=== PATIENT | male | born 1940 | race Caucasian/White ===

== ENCOUNTER → 2016-10-19 | Outpatient (CLI) | payer MEDICARE, OTHER | END | disposition home or self-care (01) | LOC: MW.LAB 12:46 | PROVIDERS: ATTEND Hospitalist | DX: R30.0 Dysuria (principal); I13.10 Hypertensive heart and chronic kidney disease without heart failure, with stage 1 through stage 4 chronic kidney disease, or unspecified chronic kidney disease; N19 Unspecified kidney failure; H10.10 Acute atopic conjunctivitis, unspecified eye | CPT/HCPCS: 36415; 80048; 81001; 85025; G0463 ==

== ENCOUNTER → 2016-11-29 | Outpatient (CLI) | payer MEDICARE, OTHER | LOC: MW.CHIM 08:00 | CPT/HCPCS: 99214 ==

== ENCOUNTER → 2016-12-28 | Outpatient (CLI) | payer MEDICARE, OTHER | LOC: MW.CHFP 10:12 | PROVIDERS: ATTEND Student in an Organized Health Care Education/Training Program | DX: D64.9 Anemia, unspecified (principal); J96.10 Chronic respiratory failure, unspecified whether with hypoxia or hypercapnia; R60.0 Localized edema | CPT/HCPCS: 36415; 85025; G0463 ==

== ENCOUNTER → 2017-01-18 | Outpatient (CLI) | payer MEDICARE, OTHER | LOC: MW.CHFP 13:50 | PROVIDERS: ATTEND Student in an Organized Health Care Education/Training Program | DX: D64.9 Anemia, unspecified (principal); L50.8 Other urticaria; Z99.81 Dependence on supplemental oxygen | CPT/HCPCS: 36415; 85027; G0463 ==

== ENCOUNTER → 2017-02-19 | Outpatient (CLI) | payer MEDICARE, OTHER ==
--- NOTE | 2017-02-19 15:43 | CR ---
EXAMINATION: Two-view chest (PA and Lateral views). HISTORY: Pleurodynia. FINDINGS: The trachea is midline. The heart is borderline in size. The cardiomediastinal silhouette is within normal limits. Mild interstitial prominence with a trace left pleural effusion. No pneumothorax. The re is a left-sided AICD. Median sternotomy wires are noted with evidence of coronary revascularizati on. Osseous structures appear unremarkable. IMPRESSION: 1. Trace left pleural effusion.
== END ==
LOC: MW.CHFP 13:35
PROVIDERS: ATTEND Student in an Organized Health Care Education/Training Program
DX: R07.81 Pleurodynia (principal); L29.9 Pruritus, unspecified
CPT/HCPCS: 71020; 71020-26; G0463

== ENCOUNTER 2017-03-20 08:58 | Observation (INO) | payer MEDICARE, OTHER, MEDICAID ==
[2017-03-20] MEDS ORDERED: Sodium Chloride 0.9% 10 ML Syringe FLUSH PRN (09:16)
[2017-03-20] MEDS ORDERED: Sodium Chloride 0.9% 2.5 ML Syringe FLUSH PRN (09:16)
--- NOTE | 2017-03-20 09:23 | EDM.PDOC ---
ED HPI GENERAL MEDICAL PROBLEM - General Chief Complaint: Lower Extremity Injury/Pain Stated Complaint: FELL, LEFT HIP PAIN Time Seen by Provider: 03/20/17 09:09 - History of Present Illness INITIAL COMMENTS - FREE TEXT/NARRATIVE: HISTORY AND PHYSICAL: History of present illness: The patient is a 76-year-old male with a history of hypertension congestive heart failure cardiomyopathy a pacemaker hypercholesterolemia respiratory distress of hypothyroidism who was following with Dr. Marquise Hernandez and our retail pharmacy manager Dr. Castro, but who now resides at [facility] and presents via EMS after tripping on his oxygen tubing and landing onto his left hip. The staff at the correction states he did not pass out or black out and yelled right away and complained of left hip pain when they attempted to stand him up. The patient did not complain of any other discomfort. As patient is not a very good historian and according to family at bedside he has good days and bad days and the last couple of days she's been more confused. According to the correction report he has had no other systemic complaints recently. I reviewed some of his old labs and will evaluate him with his current complaints. The [facility] staff also felt that he was somewhat bradycardic on their evaluation. The family states that he has had some frequent falls and his last fall was about 2 days ago and he landed on his left ribs and there isn't resolving bruise there. He currently is not complaining of pain in that location Review of systems: As per history of present illness and below otherwise all systems reviewed and negative. Past medical history: As per history of present illness and as reviewed below otherwise noncontributory. Surgical history: As per history of present illness and as reviewed below otherwise noncontributory. Social history: No reported history of drug or alcohol abuse. Family history: As per history of present illness and as reviewed below otherwise noncontributory. Physical exam: General: Well-developed well-nourished man who is very hard of hearing and is nontoxic and vital signs of been reviewed by me. His heart rate on my evaluation was 80 HEENT: Atraumatic, normocephalic, pupils reactive, there is no scalp deformities or tenderness appreciated on palpation and there is no facial swelling or deformities appreciated, negative for conjunctival pallor or scleral icterus, mucous membranes moist, throat clear, neck supple, nontender, trachea midline. There are no midline step-offs tenderness or defects of the cervical spine Lungs: Clear to auscultation with some scattered coarse breath sounds and crackles but no worker breathing or sensory muscle use, breath sounds equal bilaterally, chest nontender. There is a subacute ecchymosis seen on the mid and posterior ribs on the left side without any gross tenderness crepitus or deformities. Heart: S1S2, regular rhythm and rate, there is a loud systolic ejection murmur appreciated at the left sternal border Abdomen: Soft, nondistended, nontender. Negative for masses or hepatosplenomegaly. Negative for costovertebral tenderness. There are multiple well-healed abdominal scars seen Pelvis: Stable nontender. There is some tenderness at the posterior iliac crest and posterior left hip with a visible contusion in this area; when the patient was lying in bed with spontaneously flex at the hip. There is no visible shortening of the left leg or rotation. Genitourinary: Deferred. Rectal: Deferred. Extremities: Atraumatic with old surgical scar of the left knee, please see above for hip exam, there is some trace pedal edema bilaterally and the patient is very sensitive to this exam more on the left leg bilaterally., negative for cords or calf pain. Neurovascular unremarkable. Neuro: Awake, alert, speech is intact the patient is not oriented to time or place Cranial nerves II through XII unremarkable. Motor and sensory unremarkable throughout. Exam nonfocal. Back: There are no midline step-offs tenderness or defects of the thoracic or lumbar spine no posterior rib posterior pelvis tenderness and no visible soft tissue injury is seen Diagnostics: EKG chest x-ray left hip and pelvis x-ray CT scan of the head to be see CMP INR UA troponin dig level Therapeutics: IV O2 monitor IV fluids Zofran, he was also given Zofran in route, low-dose morphine Please note that in light of his history of renal insufficiency/renal disease I did research his old labs and his most recent BUN/creatinine's range from 49-59 and 2.0-2.6 with the last blood work being done just recently at the beginning of this month. I was contacted by our radiologist who informed me of the bilateral acute on chronic subdurals without any midline shift. As the patient is on Eliquis I contacted her vibrating screed operator Dr. Busch and he confirms my understanding that there is no reversal agent. I also discussed this case at length with Dr. Dinero our hospitalist at 10:30 AM as well as with the [id number] who has power of game design instructor for medical care. I'm in the process of trying to contact Dr. Cordova to see if she feels comfortable assisting in the management of this patient and not transferring the patient. According to the [id number] they do not necessarily want any aggressive neurosurgical intervention and would prefer not to be transferred but if they do need to be transferred they would likely want to go to [facility]. This family member is going to contact her son and discuss with him their wishes and I will discuss the case with Dr. Cordova. Dr. Dinero is currently seeing the patient and is aware of all the lab results as well. The patient is awake and alert and interactive with us and initially had complained of some pain so I ordered some low-dose morphine but with repositioning he is more comfortable and saying that he has no pain so we will hold the morphine dosing. 1107: Case was discussed with Dr. Cordova and she is comfortable assisting with the management of this case if the patient's son and [id number] want medical management only. We're currently awaiting the son's arrival to have this discussion. 1140: Son is now here at bedside and I have showed him the CAT scan and we have discussed the situation at length and he agrees for no transfer and admission here for medical management. Dr. 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 Left Hip Pain Score (Numeric/FACES): 6 - Related Data Allergies Allergy/AdvReac Type Severity Reaction Status Date / Time acetaminophen [From Tylenol] Allergy Confusion Verified 03/20/17 09:13 lorazepam Allergy Confusion Verified 03/20/17 09:13 pregabalin [From Lyrica] Allergy Confusion Verified 03/20/17 09:13 ropinirole Allergy Confusion Verified 03/20/17 09:13 tramadol Allergy Confusion Verified 03/20/17 09:13 Home Meds: Home Meds Albuterol [Proventil HFA] 2 puff INH Q6HR PRN 02/09/16 [History] Aspirin [Adult Low Dose Aspirin EC] 81 mg PO DAILY 02/09/16 [History] Carvedilol 1.5625 mg PO BID 02/09/16 [History] Cyanocobalamin (Vitamin B-12) [B-12] 1,000 mcg PO BID 02/09/16 [History] Omeprazole 20 mg PO DAILY 02/09/16 [History] Potassium Chloride [Klor-Con M20] 20 meq PO TID 02/09/16 [History] Simvastatin [Zocor] 20 mg PO BEDTIME 02/09/16 [History] Digoxin 125 mcg PO DAILY 03/10/16 [History] Levothyroxine Sodium [Levoxyl] 75 mcg PO QAM 03/10/16 [History] Metolazone 2.5 mg PO DAILY 03/10/16 [History] Multivitamin [Multivitamins] 1 each PO DAILY 03/10/16 [History] Sennosides/Docusate Sodium [Senna-Docusate Sodium Tablet] 1 tab PO BID PRN 03/10 [History] Apixaban [Eliquis] 1.25 mg PO BID 08/13/16 [History] Gabapentin [Neurontin] 300 mg PO BEDTIME 08/13/16 [History] PARoxetine [Paxil] 20 mg PO DAILY 08/13/16 [History] Torsemide 40 mg PO DAILY #0 10/07/16 [Rx] Glimepiride [Amaryl] 2 mg PO WITHBREAKFAST 03/20/17 [History] Past Medical History HEENT History: Reports: Cataract, Hard of Hearing Cardiovascular History: Reports: Bypass, CAD, Cardiomyopathy, ID, Pacemaker, Stents Other Cardiovascular History: Myocardial Infarct 1992 and 01/27/2016. pacemaker with defib Respiratory History: Reports: Bronchitis, Recurrent, COPD Gastrointestinal History: Reports: Cholelithiasis Genitourinary History: Reports: Retention, Urinary Musculoskeletal History: Reports: Arthritis Hematologic History: Reports: Other (See Below) Other Hematologic History: "ruptured spleen" Immunologic History: Reports: Other (See Below) Other Immunologic History: "reptured spleen" - Infectious Disease History Infectious Disease History: Reports: None - Past Surgical History HEENT Surgical History: Reports: Cataract Surgery Cardiovascular Surgical History: Reports: AICD, Coronary Artery Bypass, Coronary Artery Stent, Pacer Musculoskeletal Surgical History: Reports: Knee Replacement Social & Family History - Family History Family Medical History: Noncontributory Cardiac: Reports: Heart Failure, Other (See Below) Other Cardiac Family History: Cardiac [place] Respiratory: Reports: None GI: Reports: None : Reports: None OBGYN: Reports: None Musculoskeletal: Reports: None Neurological: Reports: None Psychiatric: Reports: None Endocrine/Metabolic: Reports: None Hematologic: Reports: None Immunologic: Reports: None Dermatologic: Reports: None Oncologic: Reports: None - Tobacco Use Smoking Status *Q: Former Smoker Second Hand Smoke Exposure: Yes - Caffeine Use Caffeine Use: Reports: None - Alcohol Use Days Per Week of Alcohol Use: 7 Number of Drinks Per Day: 1 Total Drinks Per Week: 7 - Recreational Drug Use Recreational Drug Use: No Review of Systems - Review of Systems Review Of Systems: ROS reveals no pertinent complaints other than HPI. ED EXAM, GENERAL - Physical Exam Exam: See Below (See dictation) Course - Vital Signs Last Recorded V/S: Last Vital Signs Temp 36.2 C 03/20/17 09:13 Pulse 72 03/20/17 11:22 Resp 18 03/20/17 11:22 BP 103/56 L 03/20/17 11:22 Pulse Ox 94 L 03/20/17 11:22 - Orders/Labs/Meds Orders: Active Orders 24 hr Category Date Time Status Cardiac Monitoring [RC] . DIRECTED Care 03/20/17 09:16 Active EKG Documentation Completion [RC] STAT Care 03/20/17 09:16 Active Oxygen Therapy, ED [RC] ASDIRECTED Care 03/20/17 09:16 Active Pulse Oximetry [RC] ASDIRECTED Care 03/20/17 09:16 Active Chest 1V Frontal [CR] Stat Exams 03/20/17 09:17 Stop Req Sodium Chloride 0.9% [Normal Saline] 1,000 ml Med 03/20/17 10:30 Active IV ASDIRECTED Sodium Chloride 0.9% [Saline Flush] Med 03/20/17 09:16 Active 10 ml FLUSH ASDIRECTED PRN Sodium Chloride 0.9% [Saline Flush] Med 03/20/17 09:16 Active 2.5 ml FLUSH ASDIRECTED PRN Saline Lock Insert [OM.PC] Stat Oth 03/20/17 09:16 Ordered Medication Orders Sodium Chloride (Normal Saline) 1,000 mls @ 70 mls/hr IV ASDIRECTED ARLENE Last Admin: 03/20/17 10:29 Dose: 70 mls/hr Sodium Chloride (Saline Flush) 10 ml FLUSH ASDIRECTED PRN PRN Reason: Keep Vein Open Sodium Chloride (Saline Flush) 2.5 ml FLUSH ASDIRECTED PRN PRN Reason: Keep Vein Open Labs: Laboratory Tests 03/20/17 03/20/17 03/20/17 Range/Units 09:28 09:28 09:28 WBC 6.46 (4.0-11.0) K/uL RBC 4.64 (4.50-5.90) M/uL Hgb 11.2 L (13.0-17.0) g/dL Hct 38.9 (38.0-50.0) % MCV 83.8 (80.0-98.0) fL MCH 24.1 L (27.0-32.0) pg MCHC 28.8 L (31.0-37.0) g/dL RDW Std Deviation 60.9 (28.0-62.0) fl RDW Coeff of Louie 20 H (11.0-15.0) % Plt Count 163 (150-400) K/uL MPV 10.00 (7.40-12.00) fL Neut % (Auto) 66.6 (48.0-80.0) % Lymph % (Auto) 18.1 (16.0-40.0) % Stanly % (Auto) 11.9 (0.0-15.0) % Eos % (Auto) 2.8 (0.0-7.0) % Baso % (Auto) 0.6 (0.0-1.5) % Neut # (Auto) 4.3 (1.4-5.7) K/uL Lymph # (Auto) 1.2 (0.6-2.4) K/uL Stanly # (Auto) 0.8 (0.0-0.8) K/uL Eos # (Auto) 0.2 (0.0-0.7) K/uL Baso # (Auto) 0.0 (0.0-0.1) K/uL Nucleated RBC % 0.0 /100WBC Nucleated RBCs # 0 K/uL INR 1.46 H (0.86-1.11) Sodium 138 (136-146) mmol/L Potassium 3.4 L (3.5-5.1) mmol/L Chloride 94 L (98-110) mmol/L Carbon Dioxide 34 H (21-31) mmol/L BUN 54 H (6.0-23.0) mg/dL Creatinine 2.5 H (0.6-1.5) mg/dL Est Cr Clr Drug Dosing 21.18 mL/min Estimated GFR (MDRD) 25.1 ml/min Glucose 147 H (60-110) mg/dL Calcium 8.4 L (8.8-10.8) mg/dL Total Bilirubin 1.9 H (0.1-1.5) mg/dL AST 25 (5-40) IU/L ALT 19 (8-54) IU/L Alkaline Phosphatase 244 H (40-150) Troponin I (0.0-0.29) NG/ML Total Protein 6.6 (6.0-8.0) g/dL Albumin 2.9 L (3.4-4.8) g/dL Globulin 3.7 H (2.0-3.5) g/dL Albumin/Globulin Ratio 0.8 L (1.3-2.8) Urine Color Urine Appearance Urine pH (5.0-8.0) Ur Specific Benton (1.001-1.035) Urine Protein (NEGATIVE) mg/dL Urine Glucose (UA) (NEGATIVE) mg/dL Urine Ketones (NEGATIVE) mg/dL Urine Occult Blood (NEGATIVE) Urine Nitrite (NEGATIVE) Urine Bilirubin (NEGATIVE) Urine Urobilinogen (<2.0) EU/dL Ur Leukocyte Esterase (NEGATIVE) Urine RBC (0-2/HPF) Urine WBC (0-5/HPF) Ur Epithelial Cells (NONE-FEW) Urine Bacteria (NEGATIVE) Digoxin (0.8-2.0) ng/mL 03/20/17 03/20/17 03/20/17 Range/Units 09:28 09:28 10:15 WBC (4.0-11.0) K/uL RBC (4.50-5.90) M/uL Hgb (13.0-17.0) g/dL Hct (38.0-50.0) % MCV (80.0-98.0) fL MCH (27.0-32.0) pg MCHC (31.0-37.0) g/dL RDW Std Deviation (28.0-62.0) fl RDW Coeff of Louie (11.0-15.0) % Plt Count (150-400) K/uL MPV (7.40-12.00) fL Neut % (Auto) (48.0-80.0) % Lymph % (Auto) (16.0-40.0) % Stanly % (Auto) (0.0-15.0) % Eos % (Auto) (0.0-7.0) % Baso % (Auto) (0.0-1.5) % Neut # (Auto) (1.4-5.7) K/uL Lymph # (Auto) (0.6-2.4) K/uL Stanly # (Auto) (0.0-0.8) K/uL Eos # (Auto) (0.0-0.7) K/uL Baso # (Auto) (0.0-0.1) K/uL Nucleated RBC % /100WBC Nucleated RBCs # K/uL INR (0.86-1.11) Sodium (136-146) mmol/L Potassium (3.5-5.1) mmol/L Chloride (98-110) mmol/L Carbon Dioxide (21-31) mmol/L BUN (6.0-23.0) mg/dL Creatinine (0.6-1.5) mg/dL Est Cr Clr Drug Dosing mL/min Estimated GFR (MDRD) ml/min Glucose (60-110) mg/dL Calcium (8.8-10.8) mg/dL Total Bilirubin (0.1-1.5) mg/dL AST (5-40) IU/L ALT (8-54) IU/L Alkaline Phosphatase (40-150) Troponin I < 0.10 (0.0-0.29) NG/ML Total Protein (6.0-8.0) g/dL Albumin (3.4-4.8) g/dL Globulin (2.0-3.5) g/dL Albumin/Globulin Ratio (1.3-2.8) Urine Color YELLOW Urine Appearance CLEAR Urine pH 5.0 (5.0-8.0) Ur Specific Benton <= 1.005 (1.001-1.035) Urine Protein NEGATIVE (NEGATIVE) mg/dL Urine Glucose (UA) NEGATIVE (NEGATIVE) mg/dL Urine Ketones NEGATIVE (NEGATIVE) mg/dL Urine Occult Blood NEGATIVE (NEGATIVE) Urine Nitrite NEGATIVE (NEGATIVE) Urine Bilirubin NEGATIVE (NEGATIVE) Urine Urobilinogen 0.2 (<2.0) EU/dL Ur Leukocyte Esterase SMALL (NEGATIVE) Urine RBC 0-1 (0-2/HPF) Urine WBC 1-2 (0-5/HPF) Ur Epithelial Cells RARE (NONE-FEW) Urine Bacteria RARE (NEGATIVE) Digoxin 2.27 H (0.8-2.0) ng/mL Meds: Medications Generic Name Dose Route Start Last Admin Trade Name Freq PRN Reason Stop Dose Admin Sodium Chloride 1,000 mls @ 70 mls/hr 03/20/17 10:30 03/20/17 10:29 Normal Saline IV 70 mls/hr ASDIRECTED ARLENE Administration Sodium Chloride 10 ml 03/20/17 09:16 Saline Flush FLUSH ASDIRECTED PRN Keep Vein Open Sodium Chloride 2.5 ml 03/20/17 09:16 Saline Flush FLUSH ASDIRECTED PRN Keep Vein Open Discontinued Medications Generic Name Dose Route Start Last Admin Trade Name Freq PRN Reason Stop Dose Admin Morphine Sulfate 2 mg 03/20/17 10:18 03/20/17 10:45 Morphine IVPUSH 03/20/17 10:19 Not Given ONETIME ONE Ondansetron HCl 4 mg 03/20/17 10:18 03/20/17 10:26 Zofran IVPUSH 03/20/17 10:19 4 mg ONETIME ONE Administration Departure - Departure Time of Disposition: 11:43 Disposition: Refer to Observation Condition: Fair Clinical Impression: Subdural hematoma, chronic, Current use of usp anticoagulation, Subdural hematoma, acute Contusion of hip, left Qualifiers: Encounter type: initial encounter Qualified Code(s): S70.02XA - Contusion of left hip, initial encounter - Discharge Information Forms: ED Department Discharge - My Orders Last 24 Hours: My Active Orders 03/20/17 09:16 Cardiac Monitoring [RC] . DIRECTED EKG Documentation Completion [RC] STAT Oxygen Therapy, ED [RC] ASDIRECTED Pulse Oximetry [RC] ASDIRECTED Sodium Chloride 0.9% [Saline Flush] 10 ml FLUSH ASDIRECTED PRN Sodium Chloride 0.9% [Saline Flush] 2.5 ml FLUSH ASDIRECTED PRN Saline Lock Insert [OM.PC] Stat 03/20/17 09:17 Chest 1V Frontal [CR] Stat 03/20/17 10:30 Sodium Chloride 0.9% [Normal Saline] 1,000 ml IV ASDIRECTED - Assessment/Plan Last 24 Hours: My Active Orders 03/20/17 09:16 Cardiac Monitoring [RC] . DIRECTED EKG Documentation Completion [RC] STAT Oxygen Therapy, ED [RC] ASDIRECTED Pulse Oximetry [RC] ASDIRECTED Sodium Chloride 0.9% [Saline Flush] 10 ml FLUSH ASDIRECTED PRN Sodium Chloride 0.9% [Saline Flush] 2.5 ml FLUSH ASDIRECTED PRN Saline Lock Insert [OM.PC] Stat 03/20/17 09:17 Chest 1V Frontal [CR] Stat 03/20/17 10:30 Sodium Chloride 0.9% [Normal Saline] 1,000 ml IV ASDIRECTED
[2017-03-20] MEDS ORDERED: Ondansetron 4 MG/2 ML SDV IVPUSH ONE (10:18)
[2017-03-20] MEDS ORDERED: Morphine 2 MG/ML Syringe IVPUSH ONE (10:18)
--- NOTE | 2017-03-20 10:25 | CT ---
EXAMINATION: Non contrast CT head. Coronal and sagittal reformats. HISTORY: Pain FINDINGS: Bilateral subdural hematomas are noted, predominantly hypodense with a a few hyperdense components p eripherally. These measure up to 2.4 cm on the left and 1.5 cm on the left. There is mild mass effec t on the underlying ventricles, with a possible trace left midline shift. No significant subtentoria l herniation. There is underlying generalized atrophy. No hypoattenuation changes in the major vascular territories to suggest acute infarct. No abnormal intracranial calcifications are detected. Vascular calcifications are noted. Paranasal sinuses and mastoid air cells are well aerated without substantial findings. The pituitar y fossa appears unremarkable. Calvarium is intact. No evidence of skull fracture. There is a trace subcutaneous swelling within th e left parietal region. IMPRESSION: 1. Prominent Acute on chronic bilateral subdural hematomas with mass effect and no significant midli ne shift. 2. Generalized atrophy.
--- NOTE | 2017-03-20 10:27 | CR ---
EXAMINATION: AP chest and left RIBS HISTORY: Trauma. FINDINGS: The trachea is midline. The heart is enlarged. Median sternotomy wires are noted. The cardiomediasti nal silhouette is within normal limits. There is a left-sided ICD. No pulmonary infiltrates, effusio ns or pneumothorax. Osseous structures appear unremarkable. No acute or displaced rib fracture identified. IMPRESSION: 1. No acute cardiopulmonary finding. 2. Cardiomegaly. 3. No acute or displaced rib fracture identified.
[2017-03-20] MEDS: Sodium Chloride 0.9% 1,000 ML IV SCH ×2 (10:29→21:21)
--- NOTE | 2017-03-20 10:29 | CR ---
EXAMINATION: Pelvis and left hip HISTORY: Fall COMPARISON: None TECHNIQUE: AP pelvis and 2 views of the left hip. FINDINGS: The SI joints are symmetric. The iliopectineal and ilioischial lines are intact. Bone mine ralization is normal. No fracture or acute osseous abnormality is noted. The left hip joint space is preserved. Vascular stents are noted within the femoral regions. IMPRESSION: 1. No acute osseous abnormality identified.
--- NOTE | 2017-03-20 13:27 | PCM.CONS ---
H&P History of Present Illness - General Date of Service: 03/20/17 Admit Problem/Dx: Subdural hematoma, falls Source of Information: Patient, EMS - History of Present Illness Initial Comments - Free Text/Narative: History of presenting illness obtained from chart, and some from patient, which is limited. Family is not currently available. He lives at [facility]. Reportedly he tripped on his oxygen tubing and landed on his left hip. He has had frequent falls recently last 2 days ago. He notes pain in the left hip area. He denies headaches, numbness, weakness, vision changes. He underwent head CT in ED, which showed acute on chronic subdural hematomas. Prior neuro history: I evaluated him several times between February and June 2016 for progressive polyneuropathy and encephalopathy, hallucinations. From February to April he was hypersomnolent, encephalopathic and having hallucinations. EEG showed slowing. Lyrica was weaned and then Ativan were weaned, and symptoms improved somewhat. Symptoms improved significantly after Mirapex was stopped (for RLS). MMSE 05/04/2016 was 20/30. MoCA 07/03/2016 was 24/ 30 in mild cognitive impairment range. At that time in June, he was having subjective short term memory impairment. He had a mildly wide-based gait at that visit, and distal sensory deficits. CT head 02/2017 acute on chronic bilateral SDH, not seen on CT from 02/2016 Left Hip Pain Score (Numeric/FACES): 6 - Related Data Allergies/Adverse Reactions: Allergies Allergy/AdvReac Type Severity Reaction Status Date / Time acetaminophen [From Tylenol] Allergy Confusion Verified 03/20/17 09:13 lorazepam Allergy Confusion Verified 03/20/17 09:13 pregabalin [From Lyrica] Allergy Confusion Verified 03/20/17 09:13 ropinirole Allergy Confusion Verified 03/20/17 09:13 tramadol Allergy Confusion Verified 03/20/17 09:13 Home Medications: Home Meds Albuterol [Proventil HFA] 2 puff INH Q6HR PRN 02/09/16 [History] Aspirin [Adult Low Dose Aspirin EC] 81 mg PO DAILY 02/09/16 [History] Carvedilol 1.5625 mg PO BID 02/09/16 [History] Cyanocobalamin (Vitamin B-12) [B-12] 1,000 mcg PO BID 02/09/16 [History] Omeprazole 20 mg PO ACBREAKFAST 02/09/16 [History] Potassium Chloride [Klor-Con M20] 20 meq PO TID 02/09/16 [History] Simvastatin [Zocor] 20 mg PO BEDTIME 02/09/16 [History] Digoxin 125 mcg PO DAILY 03/10/16 [History] Levothyroxine Sodium [Levoxyl] 75 mcg PO ACBREAKFAST 03/10/16 [History] Metolazone 2.5 mg PO MOTH 03/10/16 [History] Multivitamin [Multivitamins] 1 each PO DAILY 03/10/16 [History] Apixaban [Eliquis] 1.25 mg PO BID 08/13/16 [History] PARoxetine [Paxil] 40 mg PO DAILY 08/13/16 [History] Gabapentin [Neurontin] 100 mg PO DAILY PRN 03/20/17 [History] Glimepiride [Amaryl] 2 mg PO WITHBREAKFAST 03/20/17 [History] Metolazone 2.5 mg PO DAILY PRN 03/20/17 [History] Torsemide 20 mg PO BID 03/20/17 [History] diphenhydrAMINE [Benadryl] 25 mg PO BEDTIME 03/20/17 [History] Past Medical History HEENT History: Reports: Cataract, Hard of Hearing Cardiovascular History: Reports: Bypass, CAD, Cardiomyopathy, [place], Pacemaker, Stents Other Cardiovascular History: Myocardial Infarct 1992 and 01/27/2016. pacemaker with defib Respiratory History: Reports: Bronchitis, Recurrent, COPD Gastrointestinal History: Reports: Cholelithiasis Genitourinary History: Reports: Retention, Urinary Musculoskeletal History: Reports: Arthritis Neurological History: Reports: Other (See Below) Other Neuro History: Dementia and Cognitive Defecits after last hospitalization. Psychiatric History: Reports: Dementia Endocrine/Metabolic History: Reports: Diabetes, Type II Hematologic History: Reports: Other (See Below) Other Hematologic History: "ruptured spleen" Immunologic History: Reports: Other (See Below) Other Immunologic History: "reptured spleen" - Infectious Disease History Infectious Disease History: Reports: None - Past Surgical History HEENT Surgical History: Reports: Cataract Surgery Cardiovascular Surgical History: Reports: AICD, Coronary Artery Bypass, Coronary Artery Stent, Pacer Musculoskeletal Surgical History: Reports: Knee Replacement Social & Family History - Family History Family Medical History: Noncontributory Cardiac: Reports: Heart Failure, Other (See Below) Other Cardiac Family History: Cardiac Attacke Respiratory: Reports: None GI: Reports: None : Reports: None OBGYN: Reports: None Musculoskeletal: Reports: None Neurological: Reports: None Psychiatric: Reports: None Endocrine/Metabolic: Reports: None Hematologic: Reports: None Immunologic: Reports: None Dermatologic: Reports: None Oncologic: Reports: None - Tobacco Use Smoking Status *Q: Former Smoker Used Tobacco, but Quit: Yes Month Tobacco Last Used: unknown Second Hand Smoke Exposure: Yes - Caffeine Use Caffeine Use: Reports: None - Alcohol Use Days Per Week of Alcohol Use: 7 Number of Drinks Per Day: 1 Total Drinks Per Week: 7 - Recreational Drug Use Recreational Drug Use: No H&P Review of Systems - Review of Systems: Review Of Systems: ROS reveals no pertinent complaints other than HPI. Exam - Exam Exam: See Below - Vital Signs Vital Signs: Last Vital Signs Temp 36.2 C 03/20/17 13:00 Pulse 79 03/20/17 13:00 Resp 20 03/20/17 13:00 BP 103/61 03/20/17 13:00 Pulse Ox 97 03/20/17 13:00 Weight: 75.977 kg - Exam Physical Exam Comments:: Constitutional: No acute distress Psychiatric: Mood/Affect: normal/appropriate Neurological: Mental Status: Level of consciousness: Awake, alert. Orientation: Oriented to person, not hospital but knows city, correct year, incorrect season. . Comprehension/Praxis: Able to perform a two step command. Fund of Knowledge/memory: Impaired Language: Paucity of speech, naming and repetition intact Cranial Nerves: Pupils equally round and reactive to light. Visual valentin full to confrontation. Gaze conjugate, EOMI. Sensation intact and symmetric to light touch. Facial strength is full and symmetric. Palate elevates symmetrically. Normal shrug bilaterally. Tongue protrudes midline Motor: Normal tone in all groups. No drift. Power is 5/5 throughout proximal and distal muscles. Sensation: Sensation is absent to pinprick mid leg, vibratory sense absent at great toes and lateral malleoli, intact at knees. . Deep tendon reflexes: Brisk except ankle jerks trace. Plantar responses are flexor bilaterally. Coordination: Finger to nose intact, heel to morocho mildly impaired bilaterally , and rapid alternating movements are intact. Gait: Severe postural instability with standing, did not walk HEENT: Eyes: non icteric, Mouth: moist mucus membranes Cardiovascular: RRR, no obvious murmur Respiratory: clear lungs GI: non tender Musculoskeletal: non tender - Patient Data Result Diagrams: 03/20/17 09:28 03/20/17 09:28 Consult PN Assessment/Plan Procedures: Procedures ANTINUCLEAR ANTIBODIES (05/23/16) ASSAY NEPHELOMETRY NOT SPEC (05/23/16) ASSAY OF AMMONIA (03/15/16) ASSAY OF BLOOD/URIC ACID (02/18/17) ASSAY OF CK (CPK) (03/10/16) ASSAY OF DIGOXIN TOTAL (08/13/16) ASSAY OF FREE THYROXINE (03/10/16) ASSAY OF LACTIC ACID (03/10/16) ASSAY OF MAGNESIUM (08/13/16) ASSAY OF NATRIURETIC PEPTIDE (03/12/17) ASSAY OF PARATHORMONE (05/23/16) ASSAY OF PHOSPHORUS (08/13/16) ASSAY OF PROTEIN URINE (02/18/17) ASSAY OF TOTAL THYROXINE (03/10/16) ASSAY OF TROPONIN QUANT (10/05/16) ASSAY OF URINE CREATININE (02/18/17) ASSAY THYROID STIM HORMONE (05/23/16) AUTOMATED RETICULOCYTE COUNT (11/28/16) BLOOD GASES ANY COMBINATION (10/05/16) C-REACTIVE PROTEIN (01/27/16) CHEST X-RAY 1 VIEW FRONTAL (10/05/16) CHEST X-RAY 2VW FRONTAL&LATL (08/13/16) COMPLEMENT ANTIGEN (05/23/16) COMPLETE CBC AUTOMATED (02/18/17) COMPLETE CBC W/AUTO DIFF WBC (03/12/17) COMPREHEN METABOLIC PANEL (11/28/16) CREATINE MB FRACTION (03/15/16) CT HEAD/BRAIN W/O DYE (03/10/16) CYTOPATH FL NONGYN SMEARS (11/12/16) DNA ANTIBODY HO-CHUNK (05/23/16) EEG AWAKE AND DROWSY (05/21/16) ELECTROCARDIOGRAM TRACING (10/05/16) EMERGENCY DEPT VISIT (10/05/16) EMERGENCY DEPT VISIT (02/26/16) EMERGENCY DEPT VISIT (02/09/16) EVALUATE PT USE OF INHALER (02/09/16) EXTRACRANIAL BILAT STUDY (09/13/14) FLUORESCENT ANTIBODY TITER (05/23/16) FREE ASSAY (FT-3) (03/10/16) GLUCOSE BLOOD TEST (10/05/16) GLYCOSYLATED HEMOGLOBIN TEST (08/30/16) HYDRATE IV INFUSION ADD-ON (01/27/16) IMMUNOASSAY NONANTIBODY (05/23/16) IMMUNOFIX E-PHORESIS SERUM (05/23/16) LACTATE (LD) (LDH) ENZYME (11/28/16) LIPID PANEL (09/15/14) METABOLIC PANEL TOTAL CA (03/12/17) NUCLEAR ANTIGEN ANTIBODY (05/23/16) OCCULT BLOOD FECES (11/02/16) OFFICE/OUTPATIENT VISIT EST (08/13/16) OFFICE/OUTPATIENT VISIT NEW (03/15/16) POS AIRWAY PRESSURE CPAP (02/09/16) PROTEIN E-PHORESIS SERUM (11/28/16) PROTEIN E-PHORESIS/URINE/CSF (05/23/16) PROTHROMBIN TIME (10/05/16) RENAL FUNCTION PANEL (02/18/17) ROUTINE VENIPUNCTURE (02/18/17) THER/PROPH/DIAG INJ IV PUSH (10/05/16) THROMBOPLASTIN TIME PARTIAL (10/05/16) TTE W/DOPPLER COMPLETE (09/13/14) TX/PRO/DX INJ SAME DRUG DATA ANALYTICS DEVELOPER (08/13/16) URINALYSIS AUTO W/SCOPE (02/18/17) US EXAM ABDO BACK WALL RAMÍREZ (05/29/16) VASCULAR STUDY (05/29/16) VITAMIN B-12 (03/15/16) VITAMIN D 25 HYDROXY (05/23/16) WITHDRAWAL OF ARTERIAL BLOOD (10/05/16) X-RAY EXAM KNEE 4 OR MORE (04/05/15) X-RAY EXAM OF FOOT (08/13/16) (1) Subdural hematoma, acute SNOMED Code(s): 12451172 Code(s): I62.01 - NONTRAUMATIC ACUTE SUBDURAL HEMORRHAGE Current Visit: Yes Assessment:: Acute and chronic subdural hematoma 76 year old man with multiple comorbidities admitted with falls found to have acute on chronic bilateral hematomas. In favor of surgical intervention would be large volume / thickness of hematoma (>1 cm), mass effect, right to midline shift, acute blood, and likelihood of contribution to neurologic symptoms. Against surgery would be age and comorbidities. Also, majority of blood appears old. I recommend close neuro exam monitoring for deterioration in mental status, development of new acute deficits e.g. pupil change. I believe he would appropriate for transfer to a facility to where neurosurgical service are available, but family has declined transfer. -neuro checks, stat head CT if any deterioration -discontinue Eliquis -hold ASA (2) Subdural hematoma, chronic SNOMED Code(s): 90952533 Code(s): I62.03 - NONTRAUMATIC CHRONIC SUBDURAL HEMORRHAGE Current Visit: Yes Problem List Initiated/Reviewed/Updated: Yes
--- NOTE | 2017-03-20 13:39 | PCM.HP ---
H&P History of Present Illness - General Date of Service: 03/20/17 Admit Problem/Dx: Subdural hematoma, falls Source of Information: Old Records History Limitations: Reports: Altered Mental Status, Other (no family at bedside. ) - History of Present Illness Initial Comments - Free Text/Narative: This 76 mani old male with pmh of HTN, ischemic cardiomyopathy, pulmonary hypertension, paroxysmal afib, Stage 3 CKD, and hx of frequent falls presented to the ED today after a fall. Per SNF reports, he tripped on oxygen tubing landing on his L hip. He did complain of L hip pain. Patient is poor historian, he does denies blurred vision, headaches. He denies chest pain, SOB or abdominal pain. He explains he feels dizzy and lightheaded and tired currently. In the ED Head CT completed which reported acute on chronic bilateral hematomas with mass effect and no significant midline shift along with generalized atrophy. Patient does take ASA and Eliquis. Dr. Wheatley spoke with family along with Dr. Crodova, Neurology regarding patient and CT results. Family declined transfer and wants medical management and observation here. Please see Dr. Cordova's consultation note. Will admit for observation for subdural hematoma. No family with Jaime upon my interview. [facility] paperwork reports DNR/DNI. Left Hip Pain Score (Numeric/FACES): 6 - Related Data Allergies/Adverse Reactions: Allergies Allergy/AdvReac Type Severity Reaction Status Date / Time acetaminophen [From Tylenol] Allergy Confusion Verified 03/20/17 09:13 lorazepam Allergy Confusion Verified 03/20/17 09:13 pregabalin [From Lyrica] Allergy Confusion Verified 03/20/17 09:13 ropinirole Allergy Confusion Verified 03/20/17 09:13 tramadol Allergy Confusion Verified 03/20/17 09:13 Home Medications: Home Meds Albuterol [Proventil HFA] 2 puff INH Q6HR PRN 02/09/16 [History] Aspirin [Adult Low Dose Aspirin EC] 81 mg PO DAILY 02/09/16 [History] Carvedilol 1.5625 mg PO BID 02/09/16 [History] Cyanocobalamin (Vitamin B-12) [B-12] 1,000 mcg PO BID 02/09/16 [History] Omeprazole 20 mg PO ACBREAKFAST 02/09/16 [History] Potassium Chloride [Klor-Con M20] 20 meq PO TID 02/09/16 [History] Simvastatin [Zocor] 20 mg PO BEDTIME 02/09/16 [History] Digoxin 125 mcg PO DAILY 03/10/16 [History] Levothyroxine Sodium [Levoxyl] 75 mcg PO ACBREAKFAST 03/10/16 [History] Metolazone 2.5 mg PO MOTH 03/10/16 [History] Multivitamin [Multivitamins] 1 each PO DAILY 03/10/16 [History] Apixaban [Eliquis] 1.25 mg PO BID 08/13/16 [History] PARoxetine [Paxil] 40 mg PO DAILY 08/13/16 [History] Gabapentin [Neurontin] 100 mg PO DAILY PRN 03/20/17 [History] Glimepiride [Amaryl] 2 mg PO WITHBREAKFAST 03/20/17 [History] Metolazone 2.5 mg PO DAILY PRN 03/20/17 [History] Torsemide 20 mg PO BID 03/20/17 [History] diphenhydrAMINE [Benadryl] 25 mg PO BEDTIME 03/20/17 [History] Past Medical History HEENT History: Reports: Cataract, Hard of Hearing Cardiovascular History: Reports: Afib, Bypass, CAD, Cardiomyopathy, [place], Pacemaker, Stents Other Cardiovascular History: Myocardial Infarct 1992 and 01/27/2016. pacemaker with defib Respiratory History: Reports: Bronchitis, Recurrent, COPD Gastrointestinal History: Reports: Cholelithiasis Genitourinary History: Reports: Retention, Urinary Musculoskeletal History: Reports: Arthritis Neurological History: Reports: Other (See Below) Other Neuro History: Dementia and Cognitive Defecits after last hospitalization. Psychiatric History: Reports: Dementia Endocrine/Metabolic History: Reports: Diabetes, Type II Hematologic History: Reports: Other (See Below) Other Hematologic History: "ruptured spleen" - Infectious Disease History Infectious Disease History: Reports: None - Past Surgical History HEENT Surgical History: Reports: Cataract Surgery Cardiovascular Surgical History: Reports: AICD, Coronary Artery Bypass, Coronary Artery Stent, Pacer Musculoskeletal Surgical History: Reports: Knee Replacement Social & Family History - Family History Family Medical History: Noncontributory Cardiac: Reports: Heart Failure, Other (See Below) Other Cardiac Family History: Cardiac Attacke Respiratory: Reports: None GI: Reports: None : Reports: None OBGYN: Reports: None Musculoskeletal: Reports: None Neurological: Reports: None Psychiatric: Reports: None Endocrine/Metabolic: Reports: None Hematologic: Reports: None Immunologic: Reports: None Dermatologic: Reports: None Oncologic: Reports: None - Tobacco Use Smoking Status *Q: Former Smoker Used Tobacco, but Quit: Yes Month Tobacco Last Used: unknown Second Hand Smoke Exposure: Yes - Caffeine Use Caffeine Use: Reports: None - Alcohol Use Days Per Week of Alcohol Use: 7 Number of Drinks Per Day: 1 Total Drinks Per Week: 7 - Recreational Drug Use Recreational Drug Use: No - Living Situation & Occupation Living situation: Reports: Other ([facility]) Occupation: Retired H&P Review of Systems - Review of Systems: Review Of Systems: See Below General: Reports: Fatigue. Denies: Fever, Chills, Malaise HEENT: Reports: No Symptoms Pulmonary: Reports: No Symptoms. Denies: Shortness of Breath, Wheezing, Cough, Sputum Cardiovascular: Reports: Lightheadedness. Denies: Chest Pain, Palpitations, Dyspnea on Exertion Gastrointestinal: Reports: No Symptoms. Denies: Abdominal Pain, Black Stool, Bloody Stool, Nausea, Vomiting Genitourinary: Reports: No Symptoms. Denies: Dysuria, Frequency, Burning, Pain Musculoskeletal: Reports: No Symptoms Skin: Reports: No Symptoms Hematologic/Lymphatic: Reports: No Symptoms Exam - Exam Exam: See Below - Vital Signs Vital Signs: Last Vital Signs Temp 97.2 F 03/20/17 13:00 Pulse 79 03/20/17 13:00 Resp 20 03/20/17 13:00 BP 103/61 03/20/17 13:00 Pulse Ox 97 03/20/17 13:00 Weight: 75.977 kg - Exam General: Alert, Oriented, Cooperative HEENT: Mucosa Moist & Prentiss, Posterior Pharynx Clear, Pupils Equal, Pupils Reactive Neck: Supple, Trachea Midline, JVD Lungs: Clear to Auscultation, Normal Respiratory Effort Cardiovascular: Regular Rate, Normal S1, Normal S2, Irregular Rhythm Abdomen: Normal Bowel Sounds, Soft. No: Tenderness Back Exam: Normal Inspection, Full Range of Motion Extremities: Normal Inspection, Normal Pulses Skin: Ecchymosis (bruising noted to bilateral hips, tenderness to palptation. Denies numbness/tingling. Pain with movement.) Neurological: Cranial Nerves Intact, Reflexes Equal Bilateral, Strength Equal Bilateral. No: Normal Speech (pauses briefly before speaking, ) Neuro Extensive - Mental Status: Alert, Oriented x3, Normal Mood/Affect, Disorientation to Place, Memory Loss-Recent Events, Slow Response to Commands. No: Normal Cognition Neuro Extensive - Motor, Sensory, Reflexes: CN II-XII Intact Psychiatric: Alert, Normal Affect, Normal Mood - Patient Data Result Diagrams: 03/20/17 09:28 03/20/17 09:28 *Q Meaningful Use (ADM) - VTE *Q VTE Criteria *Q: VTE Pharmacological Contraindications *Q: Risk of Bleeding - Stroke *Q Stroke Criteria *Q: - AMI *Q AMI Criteria *Q: - Problem List (1) Contusion of hip, left SNOMED Code(s): 74976319 ICD Code: S70.02XA - CONTUSION OF LEFT HIP, INITIAL ENCOUNTER Status: Acute Current Visit: Yes Qualifiers: Encounter type: initial encounter Qualified Code(s): S70.02XA - Contusion of left hip, initial encounter (2) Subdural hematoma, acute SNOMED Code(s): 99734253 ICD Code: I62.01 - NONTRAUMATIC ACUTE SUBDURAL HEMORRHAGE Status: Acute Current Visit: Yes (3) Subdural hematoma, chronic SNOMED Code(s): 83370435 ICD Code: I62.03 - NONTRAUMATIC CHRONIC SUBDURAL HEMORRHAGE Status: Acute Current Visit: Yes (4) Cardiomyopathy SNOMED Code(s): 18181798 ICD Code: I42.9 - CARDIOMYOPATHY, UNSPECIFIED Status: Chronic Current Visit: No (5) Congestive heart failure SNOMED Code(s): 00444484 ICD Code: I50.9 - HEART FAILURE, UNSPECIFIED Status: Chronic Priority: High Current Visit: No Qualifiers: Congestive heart failure type: systolic Congestive heart failure chronicity : chronic Qualified Code(s): I50.22 - Chronic systolic (congestive) heart failure (6) Encephalopathies SNOMED Code(s): 73550574, 097361818 ICD Code: G93.40 - ENCEPHALOPATHY, UNSPECIFIED Status: Chronic Current Visit: Yes Problem List Initiated/Reviewed/Updated: Yes Orders Last 24hrs: Active Orders 24 hr Category Date Time Status Cyanocobalamin (Vitamin B12) [Vitamin B12] Med 03/20/17 21:00 Active 1,000 mcg PO BID Levothyroxine Med 03/21/17 07:30 Active 75 mcg PO ACBREAKFAST Medication Orders Cyanocobalamin (Vitamin B12) 1,000 mcg PO BID ARLENE Sodium Chloride (Normal Saline) 1,000 mls @ 70 mls/hr IV ASDIRECTED ARLENE Last Admin: 03/20/17 10:29 Dose: 70 mls/hr Levothyroxine Sodium (Levothyroxine) 75 mcg PO ACBREAKFAST ARLENE Sodium Chloride (Saline Flush) 10 ml FLUSH ASDIRECTED PRN PRN Reason: Keep Vein Open Sodium Chloride (Saline Flush) 2.5 ml FLUSH ASDIRECTED PRN PRN Reason: Keep Vein Open Assessment/Plan Comment:: This 76 year old male with multipl comorbities was admitted after a fall and noted to have acute on chronic bilateral hematomas. 1. Acute on chronic bilateral subdural hematomas: Please see Dr. Cordova's consultation, I appreciate her assistance. No family has been at bedside since arrival to floor, but declined transfer in ED. Will monitor closely. Neuro checks Q2h. HOLD ASA and Eliquis. If any deterioration noted, nursing to notify MD and obtain stat head CT. Repeat head CT in am to evaluate hematomas. 2. HTN; Slight hypotension noted, will monitor. Hold medications for now. 3. Cardiomyopathy, CHF: Monitor closely. stop IVFs. 4. L hip contusion: pain medication PRN. Appeared comfortable during exam, but with movement has pain. No fractures noted on Xrays. 5. DM type 2: Hold amaryl. Novolog SSI, checking BS TIDAC. VTE prophylaxis: SCDs ONLY.
[2017-03-20] MEDS ORDERED: Ondansetron 4 MG/2 ML SDV IVPUSH PRN (14:14)
[2017-03-20] MEDS: Morphine 2 MG/ML Syringe IVPUSH PRN (15:04)
[2017-03-20] MEDS ORDERED: Albuterol 8 GM Inhaler INH PRN (15:16)
[2017-03-20] MEDS: Insulin Aspart 100 Units/ML 3 ML Pen SUBCUT SCH (16:47)
[2017-03-20] MEDS: Simvastatin 40 MG Tab PO SCH (21:17)
[2017-03-20] MEDS: Cyanocobalamin (Vitamin B12) 500 MCG Tab PO SCH (21:17)
[2017-03-20] MEDS: Potassium Chloride 20 MEQ Tab.ER PO SCH (21:19)
[2017-03-21] MEDS: Omeprazole 20 MG Cap.CR PO SCH ×3 (06:30→07:57)
[2017-03-21] MEDS: Levothyroxine 75 MCG Tab PO SCH ×3 (06:31→07:58)
[2017-03-21] MEDS: Potassium Chloride 20 MEQ Tab.ER PO SCH ×5 (06:31→21:06)
[2017-03-21] MEDS: Insulin Aspart 100 Units/ML 3 ML Pen SUBCUT SCH ×4 (06:38→17:14)
[2017-03-21] MEDS: Morphine 2 MG/ML Syringe IVPUSH PRN (07:22)
[2017-03-21] MEDS ORDERED: oxyCODONE 5 MG Tab PO PRN (08:02)
--- NOTE | 2017-03-21 08:23 | PCM.PN ---
- General Info Date of Service: 03/21/17 Admission Dx/Problem (Free Text): Subdural hematoma, falls Subjective Update: Alert and oriented x2 this morning. Just received pain medications, so slightly sleep but easily arousable. Continues to have pain to l hip and ambulating is painful. Spoke with daughter Viki at bedside, hoping to stay away from narcotics, but with allergy to Tylenol, tramadol and the inability to have NSAIDs due to chronic renal insufficiency and bleeding risk is hard. She is going to talk to brother regarding Tylenol allergy to make sure this is accurate. Otherwise we may try this. Functional Status: Reports: tolerating diet, urinating. Denies: ambulating - Review of Systems General: Reports: No Symptoms. Denies: Fever, Weakness, Fatigue Pulmonary: Reports: no symptoms. Denies: shortness of breath, cough, sputum Cardiovascular: Reports: No Symptoms. Denies: Chest Pain, Edema Gastrointestinal: Reports: No symptoms. Denies: Abdominal pain, Nausea, Vomiting Genitourinary: Reports: no symptoms Neurological: Reports: Confusion (intermittently), Trouble Speaking (garbled speak at times) Psychiatric: Reports: confusion - Patient Data Vitals - most recent: Last Vital Signs Temp 98.1 F 03/21/17 07:56 Pulse 70 03/21/17 07:56 Resp 18 03/21/17 07:56 BP 122/79 03/21/17 07:56 Pulse Ox 94 L 03/21/17 07:56 Weight - most recent: 75.977 kg I&O - last 24 hours: Intake & Output 03/20/17 03/21/17 03/21/17 22:59 06:59 14:59 Intake Total 50 1501 Output Total 540 200 Balance -490 1301 Lab Results last 24 hrs: Laboratory Results - last 24 hr 03/20/17 03/21/17 03/21/17 Range/Units 16:35 04:05 04:05 WBC 9.12 (4.0-11.0) K/uL RBC 4.76 (4.50-5.90) M/uL Hgb 11.9 L (13.0-17.0) g/dL Hct 40.4 (38.0-50.0) % MCV 84.9 (80.0-98.0) fL MCH 25.0 L (27.0-32.0) pg MCHC 29.5 L (31.0-37.0) g/dL RDW Std Deviation 62.0 (28.0-62.0) fl RDW Coeff of Louie 20 H (11.0-15.0) % Plt Count 174 (150-400) K/uL MPV 11.20 (7.40-12.00) fL Neut % (Auto) 67.6 (48.0-80.0) % Lymph % (Auto) 16.3 (16.0-40.0) % Nance % (Auto) 14.5 (0.0-15.0) % Eos % (Auto) 1.1 (0.0-7.0) % Baso % (Auto) 0.5 (0.0-1.5) % Neut # (Auto) 6.2 H (1.4-5.7) K/uL Lymph # (Auto) 1.5 (0.6-2.4) K/uL Nance # (Auto) 1.3 H (0.0-0.8) K/uL Eos # (Auto) 0.1 (0.0-0.7) K/uL Baso # (Auto) 0.1 (0.0-0.1) K/uL Nucleated RBC % 0.0 /100WBC Nucleated RBCs # 0 K/uL Sodium 139 (136-146) mmol/L Potassium 4.0 (3.5-5.1) mmol/L Chloride 97 L (98-110) mmol/L Carbon Dioxide 30 (21-31) mmol/L BUN 53 H (6.0-23.0) mg/dL Creatinine 2.5 H (0.6-1.5) mg/dL Est Cr Clr Drug Dosing 21.15 mL/min Estimated GFR (MDRD) 25.1 ml/min Glucose 65 (60-110) mg/dL POC Glucose 137 H (60-110) mg/dL Calcium 8.5 L (8.8-10.8) mg/dL 03/21/17 Range/Units 06:38 WBC (4.0-11.0) K/uL RBC (4.50-5.90) M/uL Hgb (13.0-17.0) g/dL Hct (38.0-50.0) % MCV (80.0-98.0) fL MCH (27.0-32.0) pg MCHC (31.0-37.0) g/dL RDW Std Deviation (28.0-62.0) fl RDW Coeff of Louie (11.0-15.0) % Plt Count (150-400) K/uL MPV (7.40-12.00) fL Neut % (Auto) (48.0-80.0) % Lymph % (Auto) (16.0-40.0) % Nance % (Auto) (0.0-15.0) % Eos % (Auto) (0.0-7.0) % Baso % (Auto) (0.0-1.5) % Neut # (Auto) (1.4-5.7) K/uL Lymph # (Auto) (0.6-2.4) K/uL Nance # (Auto) (0.0-0.8) K/uL Eos # (Auto) (0.0-0.7) K/uL Baso # (Auto) (0.0-0.1) K/uL Nucleated RBC % /100WBC Nucleated RBCs # K/uL Sodium (136-146) mmol/L Potassium (3.5-5.1) mmol/L Chloride (98-110) mmol/L Carbon Dioxide (21-31) mmol/L BUN (6.0-23.0) mg/dL Creatinine (0.6-1.5) mg/dL Est Cr Clr Drug Dosing mL/min Estimated GFR (MDRD) ml/min Glucose (60-110) mg/dL POC Glucose 63 (60-110) mg/dL Calcium (8.8-10.8) mg/dL Med Orders - Current: Current Medications Albuterol (Ventolin Hfa) 8 gm INH Q6HR PRN PRN Reason: Wheezing Cyanocobalamin (Vitamin B12) 1,000 mcg PO BID [facility] Last Admin: 03/20/17 21:17 Dose: 1,000 mcg Digoxin (Lanoxin) 125 mcg PO DAILY [facility] Sodium Chloride (Normal Saline) 1,000 mls @ 70 mls/hr IV ASDIRECTED [facility] Last Admin: 03/20/17 21:21 Dose: 70 mls/hr Insulin Aspart (Novolog) 0 unit SUBCUT TIDAC [facility] PRN Reason: Protocol Last Admin: 03/21/17 07:47 Dose: Not Given Levothyroxine Sodium (Levothyroxine) 75 mcg PO ACBREAKFAST [facility] Last Admin: 03/21/17 07:58 Dose: 75 mcg Morphine Sulfate (Morphine) 2 mg IVPUSH Q4H PRN PRN Reason: Pain (severe 7-10) Last Admin: 03/21/17 07:22 Dose: 2 mg Multivitamins/Minerals (Thera M Plus) 1 tab PO DAILY [facility] Omeprazole (Omeprazole) 20 mg PO ACBREAKFAST [facility] Last Admin: 03/21/17 07:57 Dose: 20 mg Ondansetron HCl (Zofran) 4 mg IVPUSH Q4H PRN PRN Reason: Nausea Oxycodone HCl (Oxycodone) 5 mg PO Q6H PRN PRN Reason: Pain Paroxetine HCl (Paxil) 40 mg PO DAILY [facility] Potassium Chloride (Klor-Con M20) 20 meq PO TID [facility] Last Admin: 03/21/17 07:58 Dose: 20 meq Simvastatin (Zocor) 20 mg PO BEDTIME [facility] Last Admin: 03/20/17 21:17 Dose: 20 mg Sodium Chloride (Saline Flush) 10 ml FLUSH ASDIRECTED PRN PRN Reason: Keep Vein Open Sodium Chloride (Saline Flush) 2.5 ml FLUSH ASDIRECTED PRN PRN Reason: Keep Vein Open Discontinued Medications Morphine Sulfate (Morphine) 2 mg IVPUSH ONETIME ONE Stop: 03/20/17 10:19 Last Admin: 03/20/17 10:45 Dose: Not Given Ondansetron HCl (Zofran) 4 mg IVPUSH ONETIME ONE Stop: 03/20/17 10:19 Last Admin: 03/20/17 10:26 Dose: 4 mg - Exam Quality Assessment: supplemental oxygen, DVT prophylaxis (SCDs) General: alert, oriented (only x 2, easily reoriented.), cooperative, no acute distress HEENT: Pupils equal, Pupils reactive Lungs: Clear to auscultation, Normal respiratory effort Cardiovascular: Regular Rate, Regular Rhythm Abdomen: bowel sounds present, soft, no tenderness, no distension Extremities: no edema, normal pulses Neurological: strength equal bilateral, other (intermittent confusion and impulsiveness.). No: normal gait, normal speech (garbled at times, but other times speaks clearly) Psy/Mental Status: alert - Problem List & Annotations (1) Contusion of hip, left SNOMED Code(s): 67069719 Code(s): S70.02XA - CONTUSION OF LEFT HIP, INITIAL ENCOUNTER Status: Acute Current Visit: Yes Qualifiers: Encounter type: initial encounter Qualified Code(s): S70.02XA - Contusion of left hip, initial encounter (2) Subdural hematoma, acute SNOMED Code(s): 70289852 Code(s): I62.01 - NONTRAUMATIC ACUTE SUBDURAL HEMORRHAGE Status: Acute Current Visit: Yes (3) Subdural hematoma, chronic SNOMED Code(s): 93523658 Code(s): I62.03 - NONTRAUMATIC CHRONIC SUBDURAL HEMORRHAGE Status: Acute Current Visit: Yes (4) Cardiomyopathy SNOMED Code(s): 05866268 Code(s): I42.9 - CARDIOMYOPATHY, UNSPECIFIED Status: Chronic Current Visit: No (5) Congestive heart failure SNOMED Code(s): 63190759 Code(s): I50.9 - HEART FAILURE, UNSPECIFIED Status: Chronic Priority: High Current Visit: No Qualifiers: Congestive heart failure type: systolic Congestive heart failure chronicity : chronic Qualified Code(s): I50.22 - Chronic systolic (congestive) heart failure (6) Encephalopathies SNOMED Code(s): 09931384, 584513944 Code(s): G93.40 - ENCEPHALOPATHY, UNSPECIFIED Status: Chronic Current Visit: Yes - Problem List Review Problem List Initiated/Reviewed/Updated: Yes - My Orders Last 24 Hours: My Active Orders 03/20/17 14:13 Intake and Output [RC] Q12H Oxygen Therapy [RC] PRN Up With Assistance [RC] ASDIRECTED VTE/DVT Education [RC] PER UNIT ROUTINE Vital Signs [RC] Q4H Morphine 2 mg IVPUSH Q4H PRN Resuscitation Status Routine 03/20/17 14:14 Antiembolic Devices [RC] PER UNIT ROUTINE Ondansetron [Zofran] 4 mg IVPUSH Q4H PRN Sequential Compression Device [OM.PC] Per Unit Routine 03/20/17 15:05 Neuro Check [RC] Q2H 03/20/17 15:06 Communication Order [RC] PRN 06/21/17 15:16 Albuterol [Ventolin HFA] 8 gm INH Q6HR PRN 03/20/17 15:18 Blood Glucose Check, Bedside [RC] TIDAC 03/20/17 17:00 Insulin Aspart [NovoLOG] See Protocol SUBCUT TIDAC 03/20/17 21:00 Cyanocobalamin (Vitamin B12) [Vitamin B12] 1,000 mcg PO BID Simvastatin [Zocor] 20 mg PO BEDTIME 03/20/17 22:00 Potassium Chloride [Klor-Con M20] 20 meq PO TID 03/20/17 [employer] Diet [DIET] 03/21/17 07:00 Head wo Cont [CT] Routine 03/21/17 07:30 Levothyroxine 75 mcg PO ACBREAKFAST Omeprazole 20 mg PO ACBREAKFAST 03/21/17 08:02 oxyCODONE 5 mg PO Q6H PRN 03/21/17 08:05 Consult to Physical Therapy [PT Evaluation and Treatment] [CONS] Routine 03/21/17 09:00 Digoxin [Lanoxin] 125 mcg PO DAILY Multivitamins w-Iron/Ca/FA/Min [Thera M Plus] 1 tab PO DAILY PARoxetine [Paxil] 40 mg PO DAILY - Plan Plan:: This 76 year old male with multipl comorbities was admitted after a fall and noted to have acute on chronic bilateral hematomas. 1. Acute on chronic bilateral subdural hematomas: Please see Dr. Cordova's consultation, I appreciate her assistance.Neuro exam this morning, remains unchanged from yesterday. COntinue Neuro checks Q2h. HOLD ASA and Eliquis. If any deterioration noted, nursing to notify MD and obtain stat head CT. Repeat head CT reported stable acute on chronic bilateral subdural hematomas. Spoke with daughter, very unsure of transfer due to fragility of father's condition and due to continued decline in health over the past few months. Will repeat head CT in am , per recommendations of Dr. Cordova. 2. HTN: Slight hypotension noted, will monitor. Hold medications for now. 3. Cardiomyopathy, CHF: Stable. Monitor closely. 4. L hip contusion: Will add tylenol to avoid narcotics. No fractures noted on Xrays. Will have PT evaluate and treat. 5. DM type 2: Hold amaryl. Novolog SSI, checking BS TIDAC. VTE prophylaxis: SCDs ONLY. Dipso: likely discharge back to [facility] in am, if CT remains stable.
[2017-03-21] MEDS: Cyanocobalamin (Vitamin B12) 500 MCG Tab PO SCH ×2 (08:36→21:05)
[2017-03-21] MEDS: PARoxetine 20 MG Tab PO SCH (08:37)
[2017-03-21] MEDS: Multivitamins with Iron/Calcium/Folic Acid/Minerals Tab PO SCH (08:38)
[2017-03-21] MEDS: Digoxin 125 MCG Tab PO SCH (08:38)
--- NOTE | 2017-03-21 10:06 | CT ---
EXAMINATION: Non contrast CT head. Coronal and sagittal reformats. HISTORY: Pain Comparison: 03/20/2017. FINDINGS: Bilateral subdural hematomas are noted, predominantly hypodense with a a few hyperdense components p eripherally. These measure up to 2.4 cm on the left and 1.5 cm on the left. Overall these appear stephanie ssly unchanged in size and appearance. There is mild mass effect on the underlying ventricles, with a possible trace left midline shift. No significant subtentorial herniation. There is underlying gen eralized atrophy. No hypoattenuation changes in the major vascular territories to suggest acute infarct. No abnormal intracranial calcifications are detected. Vascular calcifications are noted. Paranasal sinuses and mastoid air cells are well aerated without substantial findings. The pituitar y fossa appears unremarkable. The calvarium is intact. No evidence of skull fracture. There is a trace subcutaneous swelling withi n the left parietal region. IMPRESSION: 1. Grossly stable acute on chronic bilateral subdural hematomas with mass effect and no significant midline shift. 2. Generalized atrophy.
--- NOTE | 2017-03-21 11:00 | PCM.CONSN ---
- General Info Date of Service: 03/21/17 Admission Dx/Problem (Free Text): Subdural hematoma, falls Subjective Update: He continues to have pain in left buttock hip area. No acute events overnight. CT this morning showed stable hemorrhage. - Patient Data Vitals - most recent: Last Vital Signs Temp 36.7 C 03/21/17 07:56 Pulse 70 03/21/17 08:38 Resp 18 03/21/17 07:56 BP 122/79 03/21/17 07:56 Pulse Ox 94 L 03/21/17 07:56 Weight - most recent: 75.977 kg I&O - last 24 hours: Intake & Output 03/20/17 03/21/17 03/21/17 22:59 06:59 14:59 Intake Total 50 1501 Output Total 540 200 Balance -490 1301 Lab Results last 24 hrs: Laboratory Results - last 24 hr 03/20/17 03/21/17 03/21/17 Range/Units 16:35 04:05 04:05 WBC 9.12 (4.0-11.0) K/uL RBC 4.76 (4.50-5.90) M/uL Hgb 11.9 L (13.0-17.0) g/dL Hct 40.4 (38.0-50.0) % MCV 84.9 (80.0-98.0) fL MCH 25.0 L (27.0-32.0) pg MCHC 29.5 L (31.0-37.0) g/dL RDW Std Deviation 62.0 (28.0-62.0) fl RDW Coeff of Louie 20 H (11.0-15.0) % Plt Count 174 (150-400) K/uL MPV 11.20 (7.40-12.00) fL Neut % (Auto) 67.6 (48.0-80.0) % Lymph % (Auto) 16.3 (16.0-40.0) % [place] % (Auto) 14.5 (0.0-15.0) % Eos % (Auto) 1.1 (0.0-7.0) % Baso % (Auto) 0.5 (0.0-1.5) % Neut # (Auto) 6.2 H (1.4-5.7) K/uL Lymph # (Auto) 1.5 (0.6-2.4) K/uL [place] # (Auto) 1.3 H (0.0-0.8) K/uL Eos # (Auto) 0.1 (0.0-0.7) K/uL Baso # (Auto) 0.1 (0.0-0.1) K/uL Nucleated RBC % 0.0 /100WBC Nucleated RBCs # 0 K/uL Sodium 139 (136-146) mmol/L Potassium 4.0 (3.5-5.1) mmol/L Chloride 97 L (98-110) mmol/L Carbon Dioxide 30 (21-31) mmol/L BUN 53 H (6.0-23.0) mg/dL Creatinine 2.5 H (0.6-1.5) mg/dL Est Cr Clr Drug Dosing 21.15 mL/min Estimated GFR (MDRD) 25.1 ml/min Glucose 65 (60-110) mg/dL POC Glucose 137 H (60-110) mg/dL Calcium 8.5 L (8.8-10.8) mg/dL 03/21/17 Range/Units 06:38 WBC (4.0-11.0) K/uL RBC (4.50-5.90) M/uL Hgb (13.0-17.0) g/dL Hct (38.0-50.0) % MCV (80.0-98.0) fL MCH (27.0-32.0) pg MCHC (31.0-37.0) g/dL RDW Std Deviation (28.0-62.0) fl RDW Coeff of Louie (11.0-15.0) % Plt Count (150-400) K/uL MPV (7.40-12.00) fL Neut % (Auto) (48.0-80.0) % Lymph % (Auto) (16.0-40.0) % [place] % (Auto) (0.0-15.0) % Eos % (Auto) (0.0-7.0) % Baso % (Auto) (0.0-1.5) % Neut # (Auto) (1.4-5.7) K/uL Lymph # (Auto) (0.6-2.4) K/uL [place] # (Auto) (0.0-0.8) K/uL Eos # (Auto) (0.0-0.7) K/uL Baso # (Auto) (0.0-0.1) K/uL Nucleated RBC % /100WBC Nucleated RBCs # K/uL Sodium (136-146) mmol/L Potassium (3.5-5.1) mmol/L Chloride (98-110) mmol/L Carbon Dioxide (21-31) mmol/L BUN (6.0-23.0) mg/dL Creatinine (0.6-1.5) mg/dL Est Cr Clr Drug Dosing mL/min Estimated GFR (MDRD) ml/min Glucose (60-110) mg/dL POC Glucose 63 (60-110) mg/dL Calcium (8.8-10.8) mg/dL Med Orders - Current: Current Medications Albuterol (Ventolin Hfa) 8 gm INH Q6HR PRN PRN Reason: Wheezing Cyanocobalamin (Vitamin B12) 1,000 mcg PO BID [facility] Last Admin: 03/21/17 08:36 Dose: 1,000 mcg Digoxin (Lanoxin) 125 mcg PO DAILY [facility] Last Admin: 03/21/17 08:38 Dose: 125 mcg Sodium Chloride (Normal Saline) 1,000 mls @ 70 mls/hr IV ASDIRECTED [facility] Last Admin: 03/20/17 21:21 Dose: 70 mls/hr Insulin Aspart (Novolog) 0 unit SUBCUT TIDAC [facility] PRN Reason: Protocol Last Admin: 03/21/17 07:47 Dose: Not Given Levothyroxine Sodium (Levothyroxine) 75 mcg PO ACBREAKFAST [facility] Last Admin: 03/21/17 07:58 Dose: 75 mcg Morphine Sulfate (Morphine) 2 mg IVPUSH Q4H PRN PRN Reason: Pain (severe 7-10) Last Admin: 03/21/17 07:22 Dose: 2 mg Multivitamins/Minerals (Thera M Plus) 1 tab PO DAILY [facility] Last Admin: 03/21/17 08:38 Dose: 1 tab Omeprazole (Omeprazole) 20 mg PO ACBREAKFAST [facility] Last Admin: 03/21/17 07:57 Dose: 20 mg Ondansetron HCl (Zofran) 4 mg IVPUSH Q4H PRN PRN Reason: Nausea Oxycodone HCl (Oxycodone) 5 mg PO Q6H PRN PRN Reason: Pain Paroxetine HCl (Paxil) 40 mg PO DAILY [facility] Last Admin: 03/21/17 08:37 Dose: 40 mg Potassium Chloride (Klor-Con M20) 20 meq PO TID [facility] Last Admin: 03/21/17 07:58 Dose: 20 meq Simvastatin (Zocor) 20 mg PO BEDTIME [facility] Last Admin: 03/20/17 21:17 Dose: 20 mg Sodium Chloride (Saline Flush) 10 ml FLUSH ASDIRECTED PRN PRN Reason: Keep Vein Open Sodium Chloride (Saline Flush) 2.5 ml FLUSH ASDIRECTED PRN PRN Reason: Keep Vein Open Discontinued Medications Morphine Sulfate (Morphine) 2 mg IVPUSH ONETIME ONE Stop: 03/20/17 10:19 Last Admin: 03/20/17 10:45 Dose: Not Given Ondansetron HCl (Zofran) 4 mg IVPUSH ONETIME ONE Stop: 03/20/17 10:19 Last Admin: 03/20/17 10:26 Dose: 4 mg - Exam Physical Findings Comments:: Limited examination as he was getting up with nurses when I came by. He was able to walk with walker. He was alert, in apparent pain. Consult PN Assessment/Plan Procedures: Procedures ANTINUCLEAR ANTIBODIES (05/23/16) ASSAY NEPHELOMETRY NOT SPEC (05/23/16) ASSAY OF AMMONIA (03/15/16) ASSAY OF BLOOD/URIC ACID (02/18/17) ASSAY OF CK (CPK) (03/10/16) ASSAY OF DIGOXIN TOTAL (08/13/16) ASSAY OF FREE THYROXINE (03/10/16) ASSAY OF LACTIC ACID (03/10/16) ASSAY OF MAGNESIUM (08/13/16) ASSAY OF NATRIURETIC PEPTIDE (03/12/17) ASSAY OF PARATHORMONE (05/23/16) ASSAY OF PHOSPHORUS (08/13/16) ASSAY OF PROTEIN URINE (02/18/17) ASSAY OF TOTAL THYROXINE (03/10/16) ASSAY OF TROPONIN QUANT (10/05/16) ASSAY OF URINE CREATININE (02/18/17) ASSAY THYROID STIM HORMONE (05/23/16) AUTOMATED RETICULOCYTE COUNT (11/28/16) BLOOD GASES ANY COMBINATION (10/05/16) C-REACTIVE PROTEIN (01/27/16) CHEST X-RAY 1 VIEW FRONTAL (10/05/16) CHEST X-RAY 2VW FRONTAL&LATL (08/13/16) COMPLEMENT ANTIGEN (05/23/16) COMPLETE CBC AUTOMATED (02/18/17) COMPLETE CBC W/AUTO DIFF WBC (03/12/17) COMPREHEN METABOLIC PANEL (11/28/16) CREATINE MB FRACTION (03/15/16) CT HEAD/BRAIN W/O DYE (03/10/16) CYTOPATH FL NONGYN SMEARS (11/12/16) DNA ANTIBODY RED DEVIL (05/23/16) EEG AWAKE AND DROWSY (05/21/16) ELECTROCARDIOGRAM TRACING (10/05/16) EMERGENCY DEPT VISIT (10/05/16) EMERGENCY DEPT VISIT (02/26/16) EMERGENCY DEPT VISIT (02/09/16) EVALUATE PT USE OF INHALER (02/09/16) EXTRACRANIAL BILAT STUDY (09/13/14) FLUORESCENT ANTIBODY TITER (05/23/16) FREE ASSAY (FT-3) (03/10/16) GLUCOSE BLOOD TEST (10/05/16) GLYCOSYLATED HEMOGLOBIN TEST (08/30/16) HYDRATE IV INFUSION ADD-ON (01/27/16) IMMUNOASSAY NONANTIBODY (05/23/16) IMMUNOFIX E-PHORESIS SERUM (05/23/16) LACTATE (LD) (LDH) ENZYME (11/28/16) LIPID PANEL (09/15/14) METABOLIC PANEL TOTAL CA (03/12/17) NUCLEAR ANTIGEN ANTIBODY (05/23/16) OCCULT BLOOD FECES (11/02/16) OFFICE/OUTPATIENT VISIT EST (08/13/16) OFFICE/OUTPATIENT VISIT NEW (03/15/16) POS AIRWAY PRESSURE CPAP (02/09/16) PROTEIN E-PHORESIS SERUM (11/28/16) PROTEIN E-PHORESIS/URINE/CSF (05/23/16) PROTHROMBIN TIME (10/05/16) RENAL FUNCTION PANEL (02/18/17) ROUTINE VENIPUNCTURE (02/18/17) THER/PROPH/DIAG INJ IV PUSH (10/05/16) THROMBOPLASTIN TIME PARTIAL (10/05/16) TTE W/DOPPLER COMPLETE (09/13/14) TX/PRO/DX INJ SAME DRUG BLASTER HELPER (08/13/16) URINALYSIS AUTO W/SCOPE (02/18/17) US EXAM ABDO BACK WALL RAMÍREZ (05/29/16) VASCULAR STUDY (05/29/16) VITAMIN B-12 (03/15/16) VITAMIN D 25 HYDROXY (05/23/16) WITHDRAWAL OF ARTERIAL BLOOD (10/05/16) X-RAY EXAM KNEE 4 OR MORE (04/05/15) X-RAY EXAM OF FOOT (08/13/16) (1) Subdural hematoma, acute SNOMED Code(s): 45209501 Code(s): I62.01 - NONTRAUMATIC ACUTE SUBDURAL HEMORRHAGE Current Visit: Yes Assessment:: Acute and chronic subdural hematoma 76 year old man with multiple comorbidities admitted with falls found to have acute on chronic bilateral hematomas. His neuro exam and repeat CT have been stable. In absence of surgical intervention, monitoring and ensuring safety / reducing risk of falls is what we have to offer. It is possible SDH will improve with time. I see from notes, the family is still discussing transfer. Rec's -neuro checks, stat head CT if any deterioration -Repeat CT head tomorrow, then again in 1-2 weeks if stable and he isn't transferred out -PT assessment (2) Subdural hematoma, chronic SNOMED Code(s): 54960424 Code(s): I62.03 - NONTRAUMATIC CHRONIC SUBDURAL HEMORRHAGE Current Visit: Yes Problem List Initiated/Reviewed/Updated: Yes
[2017-03-21] MEDS: Acetaminophen 325 MG Tab PO PRN ×2 (15:24→21:09)
[2017-03-21] MEDS: Simvastatin 40 MG Tab PO SCH (21:07)
[2017-03-22] MEDS: Potassium Chloride 20 MEQ Tab.ER PO SCH (06:55)
[2017-03-22] MEDS: Levothyroxine 75 MCG Tab PO SCH (06:57)
[2017-03-22] MEDS: Omeprazole 20 MG Cap.CR PO SCH (07:04)
[2017-03-22] MEDS: Insulin Aspart 100 Units/ML 3 ML Pen SUBCUT SCH ×2 (07:53→11:43)
[2017-03-22] MEDS: Multivitamins with Iron/Calcium/Folic Acid/Minerals Tab PO SCH (08:03)
[2017-03-22] MEDS: Cyanocobalamin (Vitamin B12) 500 MCG Tab PO SCH (08:03)
[2017-03-22] MEDS: PARoxetine 20 MG Tab PO SCH (08:03)
[2017-03-22] MEDS: Digoxin 125 MCG Tab PO SCH (08:03)
[2017-03-22 11:47] VITALS: BP 110/59
--- NOTE | 2017-03-22 12:13 | CT ---
Patient: ROSA MARIA LOUIS Facility: [facility] Site . Site : [id number] Study: CT-Head [id number]/23/2017 11:14:45 AM Ordering Physician: Rosette Zamarripa Final Report: Indication: Bilateral subdural hematomas. Comparison: Head CT dated 03/21/2017. Technique: A CT volumetric acquisition was performed of the head without IV contrast. Findings: As compared to the exam performed 2 days prior there has been no significant change in the appearance of the bilateral subdural hematomas. On the right there is a mixture of hypodense and hyperdense areas suggesting acute on chronic hemorrhage. On image 39 within the level of the superior cerebral hemispheres the right-sided subdural hematoma measures 2.8 cm in thickness and on the recent CT at this same level measured 2.8 cm. The left-sided subdural at this level measures 1.3 cm and previously measured 1.5 cm. There are few smaller areas of more hyperdense subacute hemorrhage within the left subdural collection. The cerebral ventricles maintain a midline position and appear normal in size. There is continued effacement of the sulci along the right cerebral hemisphere and no significant effacement is noted of the left-sided sulci. The cerebellum appears intact. Impression: Stable appearance of bilateral subdural hematomas, right larger than left. The hematomas show a mixture of acute and old blood. There is continued effacement of the cerebral sulci along the right cerebral hemisphere. Please note that all CT scans at this facility use dose modulation, iterative reconstruction, and/or weight-based dosing when appropriate to reduce radiation dose to as low as reasonably achievable. Dictated by Sebastian Reynolds MD @ Mar 22 2017 11:44AM Signed by: Sebastian Reynolds MD @03/22/2017 11:52:25 AM (Electronic Signature) Report Signed by Proxy. [facility]
--- NOTE | 2017-03-22 13:24 | PCM.DCSUM1 ---
Discharge Summary - Hospital Course Brief History: he was admitted with a bilateral subdural hematoma / acute on chronic - Discharge Data Discharge Date: 03/22/17 Discharge Disposition: Home, Self-Care 01 Condition: Fair - Patient Summary/Data Consults: Consultations 03/21/17 08:05 Consult to Physical Therapy [PT Evaluation and Treatment] [CONS] Routine Hospital Course: He was admitted and monitored. He is awake and alert and conversant at discharge. He seems more alert than on admission. Repeat CT of the head showed a large bilateral subdural hematoma that was unchanged from admission. His eliquis and aspirin were discontinued. He and his family reportedly declined neurosurgery referral. Dr Cordova was consulted. She recommended another head CT in one or two weeks. impression: bilateral subdural hematoma while on anticoagulation. discharge to [facility] with PT/OT consults Dr Rodriguez was notified by myself by telephone. Geovany Montelongo MD - Discharge Plan Prescriptions/Med Rec: oxyCODONE 5 mg PO Q6H PRN #60 tablet PRN Reason: Pain Home Medications: Home Meds Albuterol [Proventil HFA] 2 puff INH Q6HR PRN 02/09/16 [History] Cyanocobalamin (Vitamin B-12) [B-12] 1,000 mcg PO BID 02/09/16 [History] Omeprazole 20 mg PO ACBREAKFAST 02/09/16 [History] Simvastatin [Zocor] 20 mg PO BEDTIME 02/09/16 [History] Digoxin 125 mcg PO DAILY 03/10/16 [History] Levothyroxine Sodium [Levoxyl] 75 mcg PO ACBREAKFAST 03/10/16 [History] Multivitamin [Multivitamins] 1 each PO DAILY 03/10/16 [History] PARoxetine [Paxil] 40 mg PO DAILY 08/13/16 [History] Acetaminophen [Tylenol] 325 mg PO Q6H PRN 03/20/17 [History] Gabapentin [Neurontin] 100 mg PO DAILY PRN 03/20/17 [History] diphenhydrAMINE [Benadryl] 25 mg PO BEDTIME 03/20/17 [History] oxyCODONE 5 mg PO Q6H PRN #60 tablet 03/22/17 [Rx] Patient Handouts: Oxycodone tablets or capsules, Subdural Hematoma Forms: ED Department Discharge Referrals: Keagan Rodriguez MD [Primary Care Provider] - 03/25/17 (On his next [facility] rounds.) - Patient Data Vitals - Most Recent: Last Vital Signs Temp 97.2 F 03/22/17 11:00 Pulse 70 03/22/17 11:00 Resp 20 03/22/17 11:00 BP 110/59 L 03/22/17 11:00 Pulse Ox 98 03/22/17 11:00 Weight - Most Recent: 75.977 kg I&O - Last 24 hours: Intake & Output 03/21/17 03/22/17 03/22/17 22:59 06:59 14:59 Intake Total 480 400 Output Total 350 380 Balance 130 20 Lab Results - Last 24 hrs: Laboratory Results - last 24 hr 03/21/17 03/22/17 03/22/17 Range/Units 17:00 05:36 06:34 POC Glucose 144 H 48 L 116 H (60-110) mg/dL 03/22/17 Range/Units 11:28 POC Glucose 189 H (60-110) mg/dL Med Orders - Current: Current Medications Acetaminophen (Tylenol) 650 mg PO Q4H PRN PRN Reason: Pain Last Admin: 03/21/17 21:09 Dose: 650 mg Albuterol (Ventolin Hfa) 8 gm INH Q6HR PRN PRN Reason: Wheezing Cyanocobalamin (Vitamin B12) 1,000 mcg PO BID [facility] Last Admin: 03/22/17 08:03 Dose: 1,000 mcg Digoxin (Lanoxin) 125 mcg PO DAILY [facility] Last Admin: 03/22/17 08:03 Dose: 125 mcg Insulin Aspart (Novolog) 0 unit SUBCUT TIDAC [facility] PRN Reason: Protocol Last Admin: 03/22/17 11:43 Dose: 1 unit Levothyroxine Sodium (Levothyroxine) 75 mcg PO ACBREAKFAST [facility] Last Admin: 03/22/17 06:57 Dose: 75 mcg Morphine Sulfate (Morphine) 2 mg IVPUSH Q4H PRN PRN Reason: Pain (severe 7-10) Last Admin: 03/21/17 07:22 Dose: 2 mg Multivitamins/Minerals (Thera M Plus) 1 tab PO DAILY [facility] Last Admin: 03/22/17 08:03 Dose: 1 tab Omeprazole (Omeprazole) 20 mg PO ACBREAKFAST [facility] Last Admin: 03/22/17 07:04 Dose: 20 mg Ondansetron HCl (Zofran) 4 mg IVPUSH Q4H PRN PRN Reason: Nausea Oxycodone HCl (Oxycodone) 5 mg PO Q6H PRN PRN Reason: Pain Paroxetine HCl (Paxil) 40 mg PO DAILY [facility] Last Admin: 03/22/17 08:03 Dose: 40 mg Potassium Chloride (Klor-Con M20) 20 meq PO TID [facility] Last Admin: 03/22/17 06:55 Dose: 20 meq Simvastatin (Zocor) 20 mg PO BEDTIME [facility] Last Admin: 03/21/17 21:07 Dose: 20 mg Sodium Chloride (Saline Flush) 10 ml FLUSH ASDIRECTED PRN PRN Reason: Keep Vein Open Sodium Chloride (Saline Flush) 2.5 ml FLUSH ASDIRECTED PRN PRN Reason: Keep Vein Open Discontinued Medications Sodium Chloride (Normal Saline) 1,000 mls @ 70 mls/hr IV ASDIRECTED [facility] Last Admin: 03/20/17 21:21 Dose: 70 mls/hr Morphine Sulfate (Morphine) 2 mg IVPUSH ONETIME ONE Stop: 03/20/17 10:19 Last Admin: 03/20/17 10:45 Dose: Not Given Ondansetron HCl (Zofran) 4 mg IVPUSH ONETIME ONE Stop: 03/20/17 10:19 Last Admin: 03/20/17 10:26 Dose: 4 mg *Q Meaningful Use (DIS) - VTE *Q VTE Criteria *Q: VTE Pharmacological Contraindications *Q: Risk of Bleeding - Stroke *Q Stroke Criteria *Q: - AMI *Q AMI Criteria *Q:
== END 2017-03-22 14:15 | disposition home or self-care (01) ==
LOC: MW.ED 08:58 → MW.MS 11:56
PROVIDERS: ADMIT Internal Medicine; ATTEND Internal Medicine
DX: I62.01 Nontraumatic acute subdural hemorrhage (principal); I62.03 Nontraumatic chronic subdural hemorrhage; S70.02XA Contusion of left hip, initial encounter; I25.5 Ischemic cardiomyopathy; I13.0 Hypertensive heart and chronic kidney disease with heart failure and stage 1 through stage 4 chronic kidney disease, or unspecified chronic kidney disease; E11.22 Type 2 diabetes mellitus with diabetic chronic kidney disease; N18.3 Chronic kidney disease, stage 3 (moderate); I50.9 Heart failure, unspecified; G93.40 Encephalopathy, unspecified; I27.2 Other secondary pulmonary hypertension; I48.0 Paroxysmal atrial fibrillation; R29.6 Repeated falls; Z88.6 Allergy status to analgesic agent; Z88.8 Allergy status to other drugs, medicaments and biological substances; Z79.02 Long term (current) use of antithrombotics/antiplatelets; Z79.82 Long term (current) use of aspirin; Z79.84 Long term (current) use of oral hypoglycemic drugs; Z79.899 Other long term (current) drug therapy; I25.10 Atherosclerotic heart disease of native coronary artery without angina pectoris; I25.2 Old myocardial infarction; J44.9 Chronic obstructive pulmonary disease, unspecified; M19.90 Unspecified osteoarthritis, unspecified site; F03.90 Unspecified dementia, unspecified severity, without behavioral disturbance, psychotic disturbance, mood disturbance, and anxiety; Z95.810 Presence of automatic (implantable) cardiac defibrillator; Z95.1 Presence of aortocoronary bypass graft; Z95.5 Presence of coronary angioplasty implant and graft; Z96.659 Presence of unspecified artificial knee joint; Z98.890 Other specified postprocedural states; Z87.891 Personal history of nicotine dependence
CPT/HCPCS: 36415; 70450; 71101; 73502; 80048; 80053; 80162; 81001; 82962; 84484; 85025; 85610; 93005; 96361; 96374; 96375; 96376; 99285; A9270; G0378; J1815; J2270; J2405; J7040; 99291

== ENCOUNTER 2017-03-25 10:20 | Emergency (ER) | payer MEDICARE, OTHER, MEDICAID ==
--- NOTE | 2017-03-25 11:12 | CT ---
EXAMINATION: Non contrast CT head. Coronal and sagittal reformats. HISTORY: Pain Comparison: 03/22/2017, 03/21/2017. FINDINGS: Again noted are bilateral subdural hematomas, right greater than left. Overall the hyperdense compon ent bilaterally appears decreasing over the past several studies. The right subdural measures approx imately 2.3 cm and the left subdural measures approximately 1.4 cm. There is effacement of the adjac ent sulci on the right with a trace right left midline shift, unchanged. No new area of intracranial hemorrhage noted. The reyes-white matter differentiation is grossly preserved. Posterior fossa appea rs normal. The orbits and globes appear symmetric. The mastoid air cells and paranasal sinuses are clear. The c alvarium appears intact. IMPRESSION: 1. Grossly unchanged bilateral, right greater than left, acute on chronic subdural hematomas. 2. Otherwise no acute intracranial findings.
--- NOTE | 2017-03-25 11:23 | EDM.PDOC ---
ED HPI GENERAL MEDICAL PROBLEM - General Chief Complaint: Neuro Symptoms/Deficits Stated Complaint: CARMEN Time Seen by Provider: 03/25/17 10:39 Source of Information: Reports: [facility] Records History Limitations: Reports: Altered Mental Status - History of Present Illness INITIAL COMMENTS - FREE TEXT/NARRATIVE: HISTORY AND PHYSICAL: History of present illness: [Patient is brought to the emergency room via [facility] van. Nursing staff reported that the patient has been more lethargic, tired, unable to stand and transfer independently than previously since his discharge from the hospital on 03/22. Was admitted March 20 for acute on chronic bilateral subdural hematomas. Vitals have been stable except for O2 sat at 86% on room air. This improved to 96% on 2 L per nasal cannula. He typically uses O2 at the senior care. O2 sat upon presentation to the emergency room was 76%. His nasal cannula and tubing was laying on the floor of the senior care van. It is not known how long his oxygen was off. Patient history is significant for hypothyroidism, mitral valve disease, pulmonary hypertension, atrial fibrillation, GERD, stage III CKD, congestive heart failure, CAD, peripheral vascular disease. Review of systems: As per history of present illness and below otherwise all systems reviewed and negative. Past medical history: As per history of present illness and as reviewed below otherwise noncontributory. Surgical history: As per history of present illness and as reviewed below otherwise noncontributory. Social history: No reported history of drug or alcohol abuse. Family history: As per history of present illness and as reviewed below otherwise noncontributory. Physical exam: General: HEENT: Atraumatic, normocephalic. PERRLA. Lips appear slightly dry. Lungs: Clear to auscultation, breath sounds equal bilaterally. Heart: S1S2, regular rate and rhythm. Grade III/ systolic murmur. Abdomen: Soft, nondistended, nontender. Negative for masses or rebound. Pelvis: Stable nontender. Genitourinary: Deferred. Rectal: Deferred. Extremities: Atraumatic. No cyanosis or edema to feet or lower legs. Neurovascular unremarkable. Neuro: Lethargic.. Sleeps throughout entire ER visit today. When he is woken up he mumbles and appears confused. Hand salvage winder strength is strong and equal bilaterally. Diagnostics: [CT head without contrast, CBC, CMP, urinalysis, UDS, ammonia, digoxin level, troponin, EKG, PT/INR] Impression: [Altered mentation Acute on chronic bilateral subdural hematomas] Plan: [CT head shows slightly improved acute on chronic subdural hematomas bilaterally. No new acute findings. Digoxin level is elevated at 3.12. Overall patient's lab results appear stable when compared to previous hospitalization of last week. Dr. Montelongo visits with patient's family about inpatient services versus transfer for neurosurgical consultation. Family would like to proceed with transfer. Discussed patient's case with Dr. Timmons, hospitalist, and Dr. Elliott, neurosurgeon at [facility] who agreed to accept patient in transfer. This is discussed with patient's , and his son and [id number], who have DURABLE POWER OF HUMANITIES COORDINATOR for healthcare. Patient will be transferred via ground EMS.] Definitive disposition and diagnosis as appropriate pending reevaluation and review of above. - Related Data Allergies Allergy/AdvReac Type Severity Reaction Status Date / Time lorazepam Allergy Confusion Verified 03/25/17 10:33 pregabalin [From Lyrica] Allergy Confusion Verified 03/25/17 10:33 ropinirole Allergy Confusion Verified 03/25/17 10:33 tramadol Allergy Confusion Verified 03/25/17 10:33 Home Meds: Home Meds Albuterol [Proventil HFA] 2 puff INH Q6HR PRN 02/09/16 [History] Cyanocobalamin (Vitamin B-12) [B-12] 1,000 mcg PO BID 02/09/16 [History] Omeprazole 20 mg PO ACBREAKFAST 02/09/16 [History] Simvastatin [Zocor] 20 mg PO BEDTIME 02/09/16 [History] Digoxin 125 mcg PO DAILY 03/10/16 [History] Levothyroxine Sodium [Levoxyl] 75 mcg PO ACBREAKFAST 03/10/16 [History] PARoxetine [Paxil] 40 mg PO DAILY 08/13/16 [History] Acetaminophen [Tylenol] 325 mg PO Q6H PRN 03/20/17 [History] Gabapentin [Neurontin] 100 mg PO DAILY PRN 03/20/17 [History] diphenhydrAMINE [Benadryl] 25 mg PO BEDTIME 03/20/17 [History] Past Medical History HEENT History: Reports: Cataract, Hard of Hearing Cardiovascular History: Reports: Afib, Bypass, CAD, Cardiomyopathy, [place], Pacemaker, Stents Other Cardiovascular History: Myocardial Infarct 1992 and 01/27/2016. pacemaker with defib Respiratory History: Reports: Bronchitis, Recurrent, COPD Other Respiratory History: O2 dependent; nicotine dependence Gastrointestinal History: Reports: Cholelithiasis Genitourinary History: Reports: Retention, Urinary Other Genitourinary History: chronic kidney disease Musculoskeletal History: Reports: Arthritis Neurological History: Reports: Other (See Below) Other Neuro History: Dementia and Cognitive Defecits after last hospitalization. Psychiatric History: Reports: Dementia Endocrine/Metabolic History: Reports: Diabetes, Type II Hematologic History: Reports: Other (See Below) Other Hematologic History: "ruptured spleen" Immunologic History: Reports: Other (See Below) Other Immunologic History: "reptured spleen" - Infectious Disease History Infectious Disease History: Reports: None - Past Surgical History HEENT Surgical History: Reports: Cataract Surgery Cardiovascular Surgical History: Reports: AICD, Coronary Artery Bypass, Coronary Artery Stent, Pacer Musculoskeletal Surgical History: Reports: Knee Replacement Social & Family History - Family History Family Medical History: Noncontributory Cardiac: Reports: Heart Failure, Other (See Below) Other Cardiac Family History: Cardiac [place] Respiratory: Reports: None GI: Reports: None : Reports: None OBGYN: Reports: None Musculoskeletal: Reports: None Neurological: Reports: None Psychiatric: Reports: None Endocrine/Metabolic: Reports: None Hematologic: Reports: None Immunologic: Reports: None Dermatologic: Reports: None Oncologic: Reports: None - Tobacco Use Smoking Status *Q: Unknown Ever Smoked Used Tobacco, but Quit: Yes Month Tobacco Last Used: unknown Second Hand Smoke Exposure: Yes - Caffeine Use Caffeine Use: Reports: None - Alcohol Use Days Per Week of Alcohol Use: 7 Number of Drinks Per Day: 1 Total Drinks Per Week: 7 - Recreational Drug Use Recreational Drug Use: No - Living Situation & Occupation Living situation: Reports: Other ([facility]) Occupation: Retired ED ROS GENERAL - Review of Systems Review Of Systems: ROS reveals no pertinent complaints other than HPI. ED EXAM, NEURO - Physical Exam Exam: See Below Course - Vital Signs Last Recorded V/S: Last Vital Signs Temp 96.3 F 03/25/17 10:36 Pulse 72 03/25/17 12:54 Resp 18 03/25/17 12:54 BP 118/76 06/26/17 12:54 Pulse Ox 92 L 03/25/17 12:54 - Orders/Labs/Meds Orders: Active Orders 24 hr Category Date Time Status EKG Documentation Completion [RC] STAT Care 03/25/17 10:41 Active Labs: Laboratory Tests 03/25/17 03/25/17 03/25/17 Range/Units 11:15 11:15 11:15 WBC 6.74 (4.0-11.0) K/uL RBC 4.68 (4.50-5.90) M/uL Hgb 11.5 L (13.0-17.0) g/dL Hct 39.3 (38.0-50.0) % MCV 84.0 (80.0-98.0) fL MCH 24.6 L (27.0-32.0) pg MCHC 29.3 L (31.0-37.0) g/dL RDW Std Deviation 61.0 (28.0-62.0) fl RDW Coeff of Louie 20 H (11.0-15.0) % Plt Count 188 (150-400) K/uL MPV 11.10 (7.40-12.00) fL Neut % (Auto) 65.7 (48.0-80.0) % Lymph % (Auto) 18.5 (16.0-40.0) % [place] % (Auto) 13.5 (0.0-15.0) % Eos % (Auto) 1.3 (0.0-7.0) % Baso % (Auto) 1.0 (0.0-1.5) % Neut # (Auto) 4.4 (1.4-5.7) K/uL Lymph # (Auto) 1.3 (0.6-2.4) K/uL [place] # (Auto) 0.9 H (0.0-0.8) K/uL Eos # (Auto) 0.1 (0.0-0.7) K/uL Baso # (Auto) 0.1 (0.0-0.1) K/uL Nucleated RBC % 0.6 /100WBC Nucleated RBCs # 0 K/uL INR (0.86-1.11) Sodium 138 (136-146) mmol/L Potassium 4.5 (3.5-5.1) mmol/L Chloride 99 (98-110) mmol/L Carbon Dioxide 28 (21-31) mmol/L BUN 67 H (6.0-23.0) mg/dL Creatinine 2.7 H (0.6-1.5) mg/dL Est Cr Clr Drug Dosing 19.58 mL/min Estimated GFR (MDRD) 23.0 ml/min Glucose 65 (60-110) mg/dL Calcium 9.1 (8.8-10.8) mg/dL Total Bilirubin 2.2 H (0.1-1.5) mg/dL AST 35 (5-40) IU/L ALT 41 (8-54) IU/L Alkaline Phosphatase 276 H (40-150) Ammonia 48 (14-68) UG/DL Troponin I (0.0-0.29) NG/ML Total Protein 6.9 (6.0-8.0) g/dL Albumin 3.1 L (3.4-4.8) g/dL Globulin 3.8 H (2.0-3.5) g/dL Albumin/Globulin Ratio 0.8 L (1.3-2.8) Urine Color Urine Appearance Urine pH (5.0-8.0) Ur Specific [place] (1.001-1.035) Urine Protein (NEGATIVE) mg/dL Urine Glucose (UA) (NEGATIVE) mg/dL Urine Ketones (NEGATIVE) mg/dL Urine Occult Blood (NEGATIVE) Urine Nitrite (NEGATIVE) Urine Bilirubin (NEGATIVE) Urine Urobilinogen (<2.0) EU/dL Ur Leukocyte Esterase (NEGATIVE) Urine RBC (0-2/HPF) Urine WBC (0-5/HPF) Ur Epithelial Cells (NONE-FEW) Urine Bacteria (NEGATIVE) Digoxin 3.12 H (0.8-2.0) ng/mL Urine Opiates Screen (NEGATIVE) Ur Oxycodone Screen (NEGATIVE) Urine Methadone Screen (NEGATIVE) Ur Barbiturates Screen (NEGATIVE) Ur Phencyclidine Scrn (NEGATIVE) Ur Amphetamine Screen (NEGATIVE) U Methamphetamines Scrn (NEGATIVE) U Benzodiazepines Scrn (NEGATIVE) U Cocaine Metab Screen (NEGATIVE) U Marijuana (THC) Screen (NEGATIVE) 03/25/17 03/25/17 03/25/17 Range/Units 11:15 11:15 11:58 WBC (4.0-11.0) K/uL RBC (4.50-5.90) M/uL Hgb (13.0-17.0) g/dL Hct (38.0-50.0) % MCV (80.0-98.0) fL MCH (27.0-32.0) pg MCHC (31.0-37.0) g/dL RDW Std Deviation (28.0-62.0) fl RDW Coeff of Louie (11.0-15.0) % Plt Count (150-400) K/uL MPV (7.40-12.00) fL Neut % (Auto) (48.0-80.0) % Lymph % (Auto) (16.0-40.0) % [place] % (Auto) (0.0-15.0) % Eos % (Auto) (0.0-7.0) % Baso % (Auto) (0.0-1.5) % Neut # (Auto) (1.4-5.7) K/uL Lymph # (Auto) (0.6-2.4) K/uL [place] # (Auto) (0.0-0.8) K/uL Eos # (Auto) (0.0-0.7) K/uL Baso # (Auto) (0.0-0.1) K/uL Nucleated RBC % /100WBC Nucleated RBCs # K/uL INR 1.57 H (0.86-1.11) Sodium (136-146) mmol/L Potassium (3.5-5.1) mmol/L Chloride (98-110) mmol/L Carbon Dioxide (21-31) mmol/L BUN (6.0-23.0) mg/dL Creatinine (0.6-1.5) mg/dL Est Cr Clr Drug Dosing mL/min Estimated GFR (MDRD) ml/min Glucose (60-110) mg/dL Calcium (8.8-10.8) mg/dL Total Bilirubin (0.1-1.5) mg/dL AST (5-40) IU/L ALT (8-54) IU/L Alkaline Phosphatase (40-150) Ammonia (14-68) UG/DL Troponin I 0.16 (0.0-0.29) NG/ML Total Protein (6.0-8.0) g/dL Albumin (3.4-4.8) g/dL Globulin (2.0-3.5) g/dL Albumin/Globulin Ratio (1.3-2.8) Urine Color YELLOW Urine Appearance CLEAR Urine pH 5.5 (5.0-8.0) Ur Specific [place] 1.015 (1.001-1.035) Urine Protein NEGATIVE (NEGATIVE) mg/dL Urine Glucose (UA) NEGATIVE (NEGATIVE) mg/dL Urine Ketones NEGATIVE (NEGATIVE) mg/dL Urine Occult Blood NEGATIVE (NEGATIVE) Urine Nitrite NEGATIVE (NEGATIVE) Urine Bilirubin NEGATIVE (NEGATIVE) Urine Urobilinogen 1.0 (<2.0) EU/dL Ur Leukocyte Esterase NEGATIVE (NEGATIVE) Urine RBC 0-1 (0-2/HPF) Urine WBC 5-7 (0-5/HPF) Ur Epithelial Cells RARE (NONE-FEW) Urine Bacteria FEW (NEGATIVE) Digoxin (0.8-2.0) ng/mL Urine Opiates Screen (NEGATIVE) Ur Oxycodone Screen (NEGATIVE) Urine Methadone Screen (NEGATIVE) Ur Barbiturates Screen (NEGATIVE) Ur Phencyclidine Scrn (NEGATIVE) Ur Amphetamine Screen (NEGATIVE) U Methamphetamines Scrn (NEGATIVE) U Benzodiazepines Scrn (NEGATIVE) U Cocaine Metab Screen (NEGATIVE) U Marijuana (THC) Screen (NEGATIVE) 03/25/17 Range/Units 11:58 WBC (4.0-11.0) K/uL RBC (4.50-5.90) M/uL Hgb (13.0-17.0) g/dL Hct (38.0-50.0) % MCV (80.0-98.0) fL MCH (27.0-32.0) pg MCHC (31.0-37.0) g/dL RDW Std Deviation (28.0-62.0) fl RDW Coeff of Louie (11.0-15.0) % Plt Count (150-400) K/uL MPV (7.40-12.00) fL Neut % (Auto) (48.0-80.0) % Lymph % (Auto) (16.0-40.0) % [place] % (Auto) (0.0-15.0) % Eos % (Auto) (0.0-7.0) % Baso % (Auto) (0.0-1.5) % Neut # (Auto) (1.4-5.7) K/uL Lymph # (Auto) (0.6-2.4) K/uL [place] # (Auto) (0.0-0.8) K/uL Eos # (Auto) (0.0-0.7) K/uL Baso # (Auto) (0.0-0.1) K/uL Nucleated RBC % /100WBC Nucleated RBCs # K/uL INR (0.86-1.11) Sodium (136-146) mmol/L Potassium (3.5-5.1) mmol/L Chloride (98-110) mmol/L Carbon Dioxide (21-31) mmol/L BUN (6.0-23.0) mg/dL Creatinine (0.6-1.5) mg/dL Est Cr Clr Drug Dosing mL/min Estimated GFR (MDRD) ml/min Glucose (60-110) mg/dL Calcium (8.8-10.8) mg/dL Total Bilirubin (0.1-1.5) mg/dL AST (5-40) IU/L ALT (8-54) IU/L Alkaline Phosphatase (40-150) Ammonia (14-68) UG/DL Troponin I (0.0-0.29) NG/ML Total Protein (6.0-8.0) g/dL Albumin (3.4-4.8) g/dL Globulin (2.0-3.5) g/dL Albumin/Globulin Ratio (1.3-2.8) Urine Color Urine Appearance Urine pH (5.0-8.0) Ur Specific [place] (1.001-1.035) Urine Protein (NEGATIVE) mg/dL Urine Glucose (UA) (NEGATIVE) mg/dL Urine Ketones (NEGATIVE) mg/dL Urine Occult Blood (NEGATIVE) Urine Nitrite (NEGATIVE) Urine Bilirubin (NEGATIVE) Urine Urobilinogen (<2.0) EU/dL Ur Leukocyte Esterase (NEGATIVE) Urine RBC (0-2/HPF) Urine WBC (0-5/HPF) Ur Epithelial Cells (NONE-FEW) Urine Bacteria (NEGATIVE) Digoxin (0.8-2.0) ng/mL Urine Opiates Screen POSITIVE (NEGATIVE) Ur Oxycodone Screen NEGATIVE (NEGATIVE) Urine Methadone Screen NEGATIVE (NEGATIVE) Ur Barbiturates Screen NEGATIVE (NEGATIVE) Ur Phencyclidine Scrn NEGATIVE (NEGATIVE) Ur Amphetamine Screen NEGATIVE (NEGATIVE) U Methamphetamines Scrn NEGATIVE (NEGATIVE) U Benzodiazepines Scrn NEGATIVE (NEGATIVE) U Cocaine Metab Screen NEGATIVE (NEGATIVE) U Marijuana (THC) Screen NEGATIVE (NEGATIVE) Departure - Departure Time of Disposition: 15:30 Disposition: DC/Tfer to Acute Hospital 02 Condition: Fair Clinical Impression: Subdural hematoma, acute, Subdural hematoma, chronic Altered mental state Qualifiers: Altered mental status type: disorientation Qualified Code(s): R41.0 - Disorientation, unspecified - Discharge Information Forms: ED Department Discharge - My Orders Last 24 Hours: My Active Orders 03/25/17 10:41 EKG Documentation Completion [RC] STAT - Assessment/Plan Last 24 Hours: My Active Orders 03/25/17 10:41 EKG Documentation Completion [RC] STAT
--- NOTE | 2017-03-25 14:10 | CR ---
EXAMINATION: Portable chest radiograph. HISTORY: Shortness of breath. FINDINGS: The trachea is midline. The heart is borderline in size with a left-sided ICD. Aortic calcifications are noted. The cardiomediastinal silhouette is within normal limits. Mild left basilar atelectasis and/or infiltrate. No significant pleural effusion or pneumothorax. Median sternotomy wires are note d. Osseous structures appear unremarkable. IMPRESSION: 1. Mild left basilar atelectasis and/or infiltrate. 2. Cardiomegaly.
[2017-03-25 17:17] VITALS: BP 155/88
== END 2017-03-25 17:17 ==
LOC: MW.ED 10:20
DX: I62.03 Nontraumatic chronic subdural hemorrhage (principal); E03.9 Hypothyroidism, unspecified; I27.2 Other secondary pulmonary hypertension; K21.9 Gastro-esophageal reflux disease without esophagitis; I50.9 Heart failure, unspecified; I48.91 Unspecified atrial fibrillation; I25.2 Old myocardial infarction; E11.9 Type 2 diabetes mellitus without complications; I25.10 Atherosclerotic heart disease of native coronary artery without angina pectoris; R41.0 Disorientation, unspecified; Z88.5 Allergy status to narcotic agent; Z79.899 Other long term (current) drug therapy; Z98.49 Cataract extraction status, unspecified eye; Z95.1 Presence of aortocoronary bypass graft; Z96.659 Presence of unspecified artificial knee joint
CPT/HCPCS: 36415; 70450; 70450-26; 71010; 71010-26; 80053; 80162; 80305; 81001; 82140; 84484; 85025; 85610; 93005; 99285; 99285-25